=== PATIENT | female | born 1930 | race Caucasian/White ===

== ENCOUNTER 2016-07-05 06:19 | Observation (INO) | payer MEDICARE, MEDICAID ==
[2016-07-05 06:27] VITALS: BMI 32.1
[2016-07-05 07:22] LABS: ADD MANUAL DIFF? NO; BASO # 0.02 K/mm3 (0.0-2.0); BASO % 0.3 % (0.0-3.0); EOS # 0.1 (0.0-0.7); EOS % 1.2 % (1.5-5.0); GRAN # 3.17 (1.4-6.5); GRAN % 55.4 % (50.0-68.0); LYMPH # 1.3 (1.2-3.4); LYMPH % 23.3 % (22.0-35.0); MEAN CELL VOLUME 87.4 fL (80.0-105.0); MEAN CORPUSCULAR HEMOGLOBIN 29.2 pg (25.0-35.0); MEAN CORPUSCULAR HGB CONC 33.4 g/dl (31.0-37.0); MEAN PLATELET VOLUME 10.2 fl (7.0-11.0); MONO # 1.1 (0.1-0.6); MONO % 19.8 % (1.0-6.0); PLATELET COUNT 216 10^3/uL (120.0-450.0); RED CELL DISTRIBUTION WIDTH 14.9 % (11.5-14.5); WHITE BLOOD COUNT 5.7 10^3/ul (4.5-11.0)
[2016-07-05 07:31] LABS: ALKALINE PHOSPHATASE 52 U/L (38-133); ALT/SGPT 21 U/L (7-56); AST/SGOT 18 U/L (15-39); BILIRUBIN,TOTAL 0.7 mg/dL (0.2-1.3); BLOOD UREA NITROGEN 16 mg/dL (7-21); CALCIUM 9.8 mg/dL (8.4-10.5); CARBON DIOXIDE 26 mmol/L (21-33); CHLORIDE 102 mmol/L (98-107); GFR AFRICAN-AMERICAN > 60; GLUCOSE,RANDOM 121 mg/dL (70-110); POTASSIUM 3.6 mmol/L (3.6-5.0); SODIUM 139 mmol/L (132-148); TOTAL PROTEIN 7.7 g/dL (5.8-8.3)
[2016-07-05 07:33] LABS: INR 1.14 (0.93-1.08); PARTIAL THROMBOPLASTIN TIME 29.4 Seconds (23.7-30.8)
[2016-07-05 07:43] LABS: TROPONIN I 0.02 ng/mL
--- NOTE | 2016-07-05 07:50 | ED PDOC ---
Arrival/HPI - General Chief Complaint: Chest Pain Time Seen by Provider: 07/05/16 07:11 Historian: Patient - History of Present Illness Narrative History of Present Illness (Text): 07/05/16 07:47 86-year-old female with a history of aortic stenosis, coronary artery disease, open heart surgery, and hypertension, presents to the emergency department with 2 days' duration of left-sided upper chest discomfort. Patient states it is nonexertional, and denies any shortness of breath or dyspnea and exertion. Patient states that this started after she was pushing a laundry basket, and is more localized to the left upper chest and her left shoulder. Patient states that her left shoulder hurts with palpation and range of motion testing. She denies any ripping or tearing sensation/radiation to the back. No other complaints. Time/Duration: Other (2 days) Symptom Onset: Sudden Symptom Course: Unchanged Activities at Onset: Rest Modifying Factors (Text): none Context: Home Past Medical History - Provider Review Nursing Documentation Reviewed: Yes - Tetanus Immunization Tetanus Immunization: Unknown - Cardiac Hx Cardiac Disorders: Yes (cabg 2 vessels) Hx Hypertension: Yes Hx Pacemaker: No - Pulmonary Hx Respiratory Disorders: No - Neurological Hx Neurological Disorder: No - HEENT Hx HEENT Disorder: No Hx Blind: No Hx Cataracts: Yes (left eye sx) - Renal Hx Renal Disorder: No - Endocrine/Metabolic Hx Endocrine Disorders: No - Hematological/Oncological Hx Blood Disorders: No - Integumentary Hx Dermatological Disorder: No - Musculoskeletal/Rheumatological Hx Musculoskeletal Disorders: No Hx Falls: No - Gastrointestinal Hx Gastrointestinal Disorders: Yes Hx Gastroesophageal Reflux: Yes - Genitourinary/Gynecological Hx Genitourinary Disorders: No - Psychiatric Hx Psychophysiologic Disorder: Yes (recent of family member) Hx Emotional Abuse: No Hx Physical Abuse: No Hx Substance Use: No - Surgical History Hx Open Heart Surgery: Yes (2011) - Anesthesia Hx Anesthesia Reactions: No Hx Malignant Hyperthermia: No - Suicidal Assessment Feels Threatened In Home Enviroment: No Family/Social History - Physician Review Nursing Documentation Reviewed: Yes Family/Social History: Unknown Family HX Smoking Status: Never Smoked Hx Alcohol Use: No Hx Substance Use: No Allergies/Home Meds Allergies/Adverse Reactions: Allergies No Known Allergies Allergy (Verified 07/05/16 06:27) Home Medications: Home Meds Medication Instructions Recorded Confirmed Famotidine [Pepcid] 40 mg PO DAILY 03/14/15 07/05/16 Aspirin [Ecotrin] 81 mg PO DAILY 07/05/16 07/05/16 Diclofenac Sodium [Voltaren] 1 % TP QID 07/05/16 07/05/16 Lidocaine 5% [Lidocaine] 1 appl TP QID PRN 07/05/16 07/05/16 Losartan [Cozaar] 50 mg PO DAILY 07/05/16 07/05/16 Omeprazole/Sodium Bicarbonate 1 each PO DAILY 07/05/16 07/05/16 [Omeprazole-Bicarb 40-1,100 Cap] Simvastatin [Zocor] 10 mg PO DAILY 07/05/16 07/05/16 Tolterodine Tartrate [Detrol LA] 4 mg PO DAILY 07/05/16 07/05/16 Review of Systems - Physician Review All systems were reviewed & negative as marked: Yes Physical Exam - Physical Exam Narrative Physical Exam (Text): 07/05/16 07:49 - Review of Systems Constitutional: Normal. absent: Fatigue, Weight Change, Fevers Eyes: Normal ENT: denies sore throat, denies tristhmus Respiratory: Normal. absent: SOB, Cough, Sputum Cardiovascular: chest pain absent: Palpitations, Syncope Gastrointestinal: Normal. absent: Abdominal Pain, Diarrhea, Nausea, Vomiting Genitourinary: Normal. absent: Dysuria, Frequency, Hematuria, vaginal bleeding Musculoskeletal: Normal. absent: Arthralgias, Back Pain, Neck Pain Skin: no rashes, no erythema Neurological: absent: Focal Weakness Endocrine: Normal Hemo/Lymphatic: Normal Psychiatric: No suicidal or homicidal ideations Physical exam Patient appears age appropriate in no distress, speaking full sentences without difficulty - Systems Exam Head: Present: Atraumatic, Normocephalic Pupils: Present: PERRL Extroacular Muscles: Present: EOMI Conjunctiva: Present: Normal Mouth: Present: Moist Mucous Membranes Neck: Present: Normal Range of Motion. No: MIDLINE TENDERNESS, Paraspinal Tenderness Respiratory/Chest: Present: Clear to Auscultation, Good Air Exchange. No: Respiratory Distress, Accessory Muscle Use, Tachypneic Cardiovascular: Present: Regular Rate and Rhythm, Normal S1, S2, Peripheal Pulses Present. No: Murmurs Abdomen: Present: Normal Bowel Sounds. No: Tenderness, Distention, Peritoneal Signs, Rebound, Guarding Back: Present: Normal Inspection. No: Midline Tenderness, Paraspinal Tenderness Upper Extremity: Present: Left shoulder range of motion limited due to pain. Anterior shoulder tender to palpation. Distal neurovascular fully intact No: Cyanosis, Edema Lower Extremity: Present: Normal Inspection. No: Edema Neurological: Present: GCS=15, Speech Normal, cranial nerves II through XII fully intact with no cerebellar abnormality, neurosensory fully intact. No focal neurological deficits. Skin: Present: Warm, Dry, Normal Color. No: Rashes Lymphatic: Present: OX3, NI, NC Psychiatric: Present: Alert, Oriented x 3, Normal Insight, Normal Concentration Vital Signs Reviewed: Yes Vital Signs Temp Pulse Resp BP Pulse Ox 07/05/16 08:53 72 18 113/57 L 96 07/05/16 08:38 73 18 113/57 L 97 07/05/16 06:19 98.6 F 86 18 135/70 98 Temperature: Afebrile Blood Pressure: Normal Pulse: Regular Respiratory Rate: Normal Appearance: Positive for: Well-Appearing Pain Distress: None Mental Status: Positive for: Alert and Oriented X 3 Medical Decision Making ED Course and Treatment: 07/05/16 07:50 Impression: 86-year-old female with history of coronary artery disease presents with reproducible left-sided chest discomfort. Differential Diagnosis include but are not limited to: Plan: -- Chest xray -- Radiology left shoulder -- Labs -- Aspirin, nitroglycerin -- Reassess and disposition Prior Visits: Notes and results from previous visits were reviewed. Patient last seen in the ED on 03/14/15 for evaluation of left sided chest pain. Patient was advised to continue medications, defer to her outpatient roller stitcher for use of beta raymond and advised to have an outpatient stress test. Patient was discharged on 03/15/16. Progress Notes: case dw Taylor Morley and Sarabjit. aware of tele obs pt aware of and agrees with plan EKG shows normal sinus, 84 bpm, LVH, ST depressions in the lateral leads. Interpreted by me. Chest x-ray shows cardiomegaly, sternotomy sutures, no effusions, no obvious infiltrates. Interpreted by me. - Lab Interpretations Lab Results: 07/05/16 07:12 07/05/16 07:12 Lab Results 07/05/16 07:12: Sodium 139, Potassium 3.6, Chloride 102, Carbon Dioxide 26, Anion Gap 15, BUN 16, Creatinine 0.7, Est GFR ( Amer) > 60, Est GFR (Non- Af Amer) > 60, Random Glucose 121 H, Calcium 9.8, Total Bilirubin 0.7, AST 18, ALT 21, Alkaline Phosphatase 52, Lactate Dehydrogenase 455, Total Creatine Kinase 24 L, Troponin I 0.02 D, NT-Pro-B Natriuret Pep 2790 H, Total Protein 7.7, Albumin 3.8, Globulin 4.0, Albumin/Globulin Ratio 1.0 L 07/05/16 07:12: PT 12.3 H, INR 1.14 H, APTT 29.4 07/05/16 07:12: WBC 5.7, RBC 3.66, Hgb 10.7 L, Hct 32.0 L, MCV 87.4, MCH 29.2, MCHC 33.4, RDW 14.9 H, Plt Count 216, MPV 10.2, Gran % 55.4, Lymph % (Auto) 23.3 , [place] % (Auto) 19.8 H, Eos % (Auto) 1.2 L, Baso % (Auto) 0.3, Gran # 3.17, Lymph # 1.3, [place] # 1.1 H, Eos # 0.1, Baso # 0.02 - RAD Interpretation Radiology Orders: 07/05/16 07:12 CHEST PORTABLE [RAD] Stat 07/05/16 07:46 SHOULDER LEFT [RAD] Stat - Medication Orders Current Medication Orders: Discontinued Medications Aminophylline (Aminophylline 25 Mg/Ml Inj) Confirm Administered Dose 250 mg .ROUTE .STK-MED ONE Stop: 07/07/16 11:08 Aspirin (Aspirin Chewable) 324 mg PO STAT STA Stop: 07/05/16 07:54 Last Admin: 07/05/16 08:19 Dose: 324 mg Aspirin (Ecotrin) 81 mg PO DAILY [facility] Last Admin: 07/07/16 14:24 Dose: 81 mg Atorvastatin Calcium (Lipitor) 10 mg PO DIN [facility] Last Admin: 07/06/16 19:06 Dose: 10 mg Ketorolac Tromethamine (Toradol) 30 mg IM Q6 PRN PRN Reason: MOD PAIN Last Admin: 07/05/16 13:52 Dose: 30 mg Re-Assess: MAR Pain Assessment Document 07/05/16 14:52 SPA (Rec: 07/05/16 18:18 SPA [id number]) Pain Reassessment Is this a pain reassessment? Yes Sleep Is patient sleeping during reassessment? Yes Ketorolac Tromethamine (Toradol) 30 mg IM STAT STA Stop: 07/05/16 20:09 Last Admin: 07/05/16 22:23 Dose: 30 mg Re-Assess: MAR Pain Assessment Document 07/05/16 23:23 SBO (Rec: 07/06/16 00:53 SBO [id number]) Pain Reassessment Is this a pain reassessment? Yes Sleep Is patient sleeping during reassessment? No Presence of Pain Presence of Pain No Lisinopril (Zestril) 10 mg PO DAILY [facility] Last Admin: 07/07/16 14:24 Dose: 10 mg Nitroglycerin (Nitrostat Sl Tab) 0.3 mg SL STAT STA Stop: 07/05/16 07:54 Last Admin: 07/05/16 08:19 Dose: 0.3 mg Pantoprazole Sodium (Protonix Inj) 40 mg IVP DAILY [facility] Last Admin: 07/07/16 14:21 Dose: Not Given Non-Admin Reason: Patient in Cardiology Pneumococcal Polyvalent Vaccine (Pneumovax 23 Vaccine) 0.5 ml IM .ONCE ONE Stop: 07/05/16 14:50 Potassium Chloride (Potassium Chloride Oral Soln) 40 meq PO ONCE ONE Stop: 07/06/16 08:49 Last Admin: 07/06/16 09:50 Dose: 40 meq Regadenoson (Lexiscan) Confirm Administered Dose 0.4 mg IVP .STK-MED ONE Stop: 07/07/16 11:08 Last Admin: 07/07/16 11:32 Dose: 0.4 mg Disposition/Present on Arrival - Present on Arrival Any Indicators Present on Arrival: No History of DVT/PE: No History of Uncontrolled Diabetes: No Urinary Catheter: No History of Decub. Ulcer: No History Surgical Site Infection Following: None - Disposition Have Diagnosis and Disposition been Completed?: Yes Diagnosis: Chest pain Disposition: HOSPITALIZED Disposition Time: 07:52 Patient Plan: Observation Condition: FAIR
--- NOTE | 2016-07-05 08:39 | RAD ---
HISTORY: cough COMPARISON: 07/05/2016 FINDINGS: LUNGS: No active pulmonary disease. PLEURA: No significant pleural effusion identified, no pneumothorax apparent. CARDIOVASCULAR: Normal. OSSEOUS STRUCTURES: Sternal wires VISUALIZED UPPER ABDOMEN: Normal. OTHER FINDINGS: None. IMPRESSION: No active disease.
--- NOTE | 2016-07-05 11:52 | CON ---
DATE: 07/05/2016 REASON FOR CONSULTATION: Cardiac evaluation, chest pain, history of coronary artery disease, history of AVR. BRIEF CLINICAL HISTORY: This is an 86-year-old female with past medical history of aortic stenosis, coronary artery disease, status post open heart surgery, CABG as well as AVR 4 years ago at [facility], came in with complaint of left shoulder pain. While the patient was pulling the la undry bag, as she pulled and then she had chest pain ____; is very tender. Denies any chest pain brianda or to that. Omanretz-uc-yrr is at the bedside and gives information through the translation. The pa pedro speaks Azeri. PAST MEDICAL HISTORY: Significant for history of hypertension, hyperlipidemia, coronary artery disea se, CABG 4 years ago at [facility], and history of AVR. PREVIOUS CARDIAC WORKUP: The patient had echocardiography done dated 03/15/2015 that shows ejection fraction 45-50%, mild aortic regurgitation, not well visualized possibly moderate , moderate to sev ere mitral regurgitation, moderate tricuspid regurg, RV systolic pressure 40, dated 03/15/2015. Hist ory of chronic left shoulder pain. CURRENT MEDICATIONS: The patient at home was taking simvastatin 20 mg daily, lisinopril 10 mg, Pepci d 40 mg, aspirin 81 mg daily. REVIEW OF SYSTEMS: As per HPI. PHYSICAL EXAMINATION: VITAL SIGNS: Temperature afebrile, heart rate 72, blood pressure 113/57. HEENT: PERRLA. Extraocular muscles intact. NECK: Supple. No carotid bruits. No thyromegaly. CHEST: Clear to auscultation. HEART: S1, S2 regular. ABDOMEN: Soft. EXTREMITIES: Clubbing and cyanosis negative. EKG showed normal sinus. No acute ST-T changes noted. BLOOD WORKUP: WBC 5.7, hemoglobin 10.7, hematocrit 32, platelet count 216. Chemistry shows sodium 1 39, potassium 3.6, chloride 102, carbon dioxide 26, anion gap of 15, BUN 16, creatinine 0.6. Troponi n 0.02, negative. BNP 2,790. IMPRESSION: Mitral regurgitation in the past, history of aortic stenosis, possible aortic valve repl acement, history of coronary artery bypass graft 4 years ago at [facility], cardiomyopathy, tricuspid regurgitation. Chest pain is very atypical; it is musculoskeletal and more on the shoulder ; the patient cries on moving the shoulder. RECOMMENDATION: Follow up CPK, troponin. Continue NSAID. Will get echo to assess LV function. Lip id profile and TSH. Will not do a stress test as now the patient has a very painful left shoulder an d cannot lift up shoulder for a stress test. So, we will schedule a stress test as outpatient later on, but will give adequate analgesics and echo to assess LV function, lipid profile and hemoglobin A1 c. Will follow with you. Thank you, Dr. Morley, for providing the opportunity in taking care of the patient. Val Whipple MD cc: [phone] TT: 07/05/2016 11:28:56 Confirmation # [id number] Dictation # [id number] mn 07/05/2016 10:51:28
--- NOTE | 2016-07-05 12:04 | RAD ---
PROCEDURE: Radiographs of the Left Shoulder HISTORY: pain COMPARISON: 03/15/2015 FINDINGS: BONES: Normal. No fracture. JOINTS: Unremarkable glenohumeral articulation. Degenerative arthritis of the acromioclavicular joint, unchanged in extent. There is apparent capsular calcifications seen beneath the acromion, most clearly evident on the "Y" view. Significance uncertain. This is unchanged from earlier examination. SOFT TISSUES: Normal. OTHER FINDINGS: None. IMPRESSION: Degenerative arthritis of the acromioclavicular joint. Probable capsular calcification of uncertain significance. No additional abnormality.
[2016-07-05] MEDS ORDERED: Pneumococcal 23-Valent Vaccine IM ONE (14:49)
[2016-07-05 16:28] LABS: TROPONIN I 0.02 ng/mL
--- NOTE | 2016-07-05 18:36 | CARD ---
APPROVED REPORT EXAM: Two-dimensional and M-mode echocardiogram with Doppler and color Doppler. INDICATION Aortic Valve Disease Cardiac Disease: CAD Chest Pain 2D DIMENSIONS Left Atrium (2D)3.3 (1.6-4.0cm)IVSd1.1 (0.7-1.1cm) LVDd4.1 (3.9-5.9cm)PWd1.3 (0.7-1.1cm) LVDs3.4 (2.5-4.0cm)FS (%) 16.7 % LVEF (%)35.4 (>50%) M-Mode DIMENSIONS Aortic Root1.80 (2.2-3.7cm)Aortic Cusp Exc.0.60 (1.5-2.0cm) Aortic Valve AoV Peak Uowatoxo349.0cm/sAoV VTI59.0cmAO Peak GR.58mmHg AO Mean GR.27mmHg Mitral Valve MV E Akgrjuse467.0cm/sMV A Kibjcbzq994.0cm/sE/A ratio1.0 TDI E/Lateral E'0.0E/Medial E'0.0 Tricuspid Valve TR Peak Sqvommbt216uj/sRAP [id number] Peak Gr.31mmHg [id number] LEFT VENTRICLE The left ventricle is normal size. There is mild concentric left ventricular hypertrophy. The systolic function is moderately impaired.EF-35% There is moderate hypokinesis in the apical anterior wall. Transmitral Doppler flow pattern is Grade III-reversible restrictive diastolic dysfunction. No left ventricle thrombus noted on this study. There is no ventricular septal defect visualized. There is no left ventricular aneurysm. There is no mass noted in the left ventricle. RIGHT VENTRICLE The right ventricle is normal size. There is normal right ventricular wall thickness. The right ventricular systolic function is normal. ATRIA The left atrium is mildly dilated. The right atrium size is normal. The interatrial septum is intact with no evidence for an atrial septal defect. AORTIC VALVE There is trace aortic regurgitation. Possible S/P Bioprosthetic AVR, not well visualized MITRAL VALVE The mitral valve is thickened but opens well. Mitral regurgitation is moderate. There is no mitral valve stenosis. There is no evidence of mitral valve prolapse. TRICUSPID VALVE The tricuspid valve leaflets are thickened or calcified, but open well. There is mild to moderate tricuspid regurgitation.RVSP-41 mmof Hg. There is no tricuspid valve stenosis. There is no tricuspid valve prolapse or vegetation. PULMONIC VALVE The pulmonic valve is not well visualized. There is no pulmonic valvular regurgitation. There is no pulmonic valvular stenosis. GREAT VESSELS The aortic root is normal in size. The ascending aorta is normal in size. The pulmonary artery is normal. The IVC is normal in size and collapses >50% with inspiration. PERICARDIAL EFFUSION There is no pleural effusion. There is no pericardial effusion. <Conclusion> The left ventricle is normal size. There is mild concentric left ventricular hypertrophy. The systolic function is moderately impaired.EF-35% Possible S/P Bioprosthetic AVR, not well visualized There is trace aortic regurgitation. Mitral regurgitation is moderate. There is mild to moderate tricuspid regurgitation.RVSP-41 mmof Hg. There is no pericardial effusion. The IVC is normal in size and collapses >50% with inspiration. No Vegetation or thrombus noted.
[2016-07-06 07:03] LABS: BASO # 0.01 K/mm3 (0.0-2.0); BASO % 0.2 % (0.0-3.0); EOS # 0.1 (0.0-0.7); EOS % 1.9 % (1.5-5.0); GRAN # 2.02 (1.4-6.5); GRAN % 42.3 % (50.0-68.0); HEMATOCRIT 30.7 % (36.0-48.0); LYMPH # 1.9 (1.2-3.4); MEAN CELL VOLUME 88.2 fL (80.0-105.0); MEAN CORPUSCULAR HGB CONC 32.9 g/dl (31.0-37.0); MEAN PLATELET VOLUME 10.4 fl (7.0-11.0); MONO # 0.8 (0.1-0.6); MONO % 16.6 % (1.0-6.0); PLATELET COUNT 206 10^3/uL (120.0-450.0); RED CELL DISTRIBUTION WIDTH 14.7 % (11.5-14.5); WHITE BLOOD COUNT 4.8 10^3/ul (4.5-11.0)
[2016-07-06 07:07] LABS: ADD MANUAL DIFF? NO
[2016-07-06 07:12] LABS: ALB/GLOB RATIO 0.9 (1.1-1.8); ALKALINE PHOSPHATASE 52 U/L (38-133); ALT/SGPT 26 U/L (7-56); AST/SGOT 18 U/L (15-39); BILIRUBIN,TOTAL 0.5 mg/dL (0.2-1.3); BLOOD UREA NITROGEN 17 mg/dL (7-21); CALCIUM 9.3 mg/dL (8.4-10.5); CARBON DIOXIDE 28 mmol/L (21-33); CHLORIDE 104 mmol/L (98-107); CHOLESTEROL 152 mg/dL (130-200); GFR AFRICAN-AMERICAN > 60; GLUCOSE,RANDOM 100 mg/dL (70-110); MAGNESIUM 1.7 mg/dL (1.7-2.2); POTASSIUM 3.5 mmol/L (3.6-5.0); SODIUM 140 mmol/L (132-148)
[2016-07-06] MEDS ORDERED: Potassium Chloride 40 mEq/30 ml LIQ UD PO ONE (08:48)
--- NOTE | 2016-07-06 09:48 | HP ---
An 86-year-old female who came in to the hospital with left-sided chest pain and shoulder pain. HISTORY OF PRESENT ILLNESS: An 86-year-old female chronic ulcers, history of cardiac disease. She h as bypass surgery. She has an aortic valve replacement, and since then, she seems to be doing okay. However, she does complain of left-sided chest pain that seems hanging with her for the last couple of days and getting worse. Sometimes it is worse with movement. Also, she complained of left should er pain that is worse with movement. The patient has no other complaint. No nausea, no vomiting, no diarrhea. She denied any fever. She denied any chills, no shortness of breath. PAST MEDICAL HISTORY: As I mentioned, bypass surgery, aortic valve replacement, chronic osteoarthrit is, gastritis, had a colonoscopy. She had an anal fissure with pain, recurrent urinary tract infecti on, sepsis in the past. She also had gastritis. ALLERGIES: No known allergies. SOCIAL HISTORY: No smoking, no drinking. She lives with her kids ____. HOME MEDICATIONS: She does take Detrol 4 mg p.o. daily, Zocor 10 mg once a day, Zegerid once a day, Cozaar 50 mg 1 a day, lidocaine ointment to her joints, Pepcid 40 mg once a day, Voltaren gel to her joints, baby aspirin 81 mg once a day. REVIEW OF SYSTEMS: Significant for abdominal discomfort, epigastric area, gastritis due to nonsteroi sachin ibuprofen, which she stopped recently, also joint pain, neck pain, shoulder pain, back pain, and also anal pain with constipation and burning urination with recurrent UTI. PHYSICAL EXAMINATION: VITAL SIGNS: Temperature is 99.5, heart rate 87, blood pressure 126/76, respirations 20. HEAD AND NECK: Normal. No JVD, no thyromegaly. CHEST: Clear. Good air entry. CARDIAC: First sound and second sound normal. ABDOMEN: Soft. There is epigastric mild tenderness. EXTREMITIES: No edema. Left shoulder - there was significant decrease in range of motion due to sev ere pain, and also chest wall - there is mild to minimal tenderness. IMPRESSION AND PLAN: 1. Chest pain, etiology most likely atypical for cardiac. We will get a cardiology consult because of the history - Dr. Whipple, get a stress test maybe an echo, and we will evaluate further depending on her clinical condition. 2. Left shoulder severe osteoarthritis. We will get an x-ray. Dr. Scott, orthopedic consult . 3. Urine incontinence, hypercholesterolemia, recurrent gastritis, hypertension. PLAN: Resume all her meds. Continue simvastatin. Continue Protonix injections. Cozaar 50 mg has b een switched Zestril 10 mg p.o. daily. Continue baby aspirin 81 mg daily. We will follow up clinically for her hypertension. The patient is currently getting Zestril 10 mg. Followup. Leonard Morley MD cc: [phone] TT: 07/06/2016 09:47:32 jn
--- NOTE | 2016-07-06 09:54 | CON ---
DATE: 07/06/2016 ORTHOPEDIC REPORT An 86-year-old female with the complaint of left shoulder pain for several days, never had it attende d to. X-ray shows large calcium deposit at subacromial space laterally of the left shoulder with exq uisite pain and tenderness and some swelling, and also has AC joint osteoarthritis significant. So s he must have a history of previous left shoulder trauma years ago. She was unable to move the arm because of pain, so we injected her left shoulder to try to do arthroc entesis. No fluid was able to come out because I am sure the synovitis was so bad that the needle wa s occluded by the synovium. So we injected that triggerpoint with Depo-Medrol and Marcaine for sympt omatic relief, and hopefully, it will feel better, and we can start therapy, which will be gentle ran ge of motion, and no heavy weights. FINAL DIAGNOSIS: Calcific bursitis, left shoulder as proven by the x-ray and clinically, and injecte d with Depo-Medrol and Marcaine. I hope she feels better. Nav Scott DO cc: [id number] TT: 07/06/2016 09:53:35 Confirmation # [id number] Dictation # [id number] sita
--- NOTE | 2016-07-06 11:06 | PN ---
DATE: 07/06/2016 REASON FOR CONSULTATION: Cardiac evaluation, chest pain, history of coronary artery disease, histor y of AVR musculoskeletal chest pain, probably secondary to bursitis: BRIEF CLINICAL HISTORY: This is an 86-year-old female with a past medical history significant for ao rtic stenosis, coronary artery disease, status post open heart surgery, CABG as well as AVR 4 years a go at [facility], came in with complaint of left shoulder pain. Tt is very tender and when the patient is pulling the laundry bag, the upper shoulder pain got worse and radiated to the c hest, so the patient came in here. Yesterday, patient last night, got steroid injections by Dr. Ivy paredes and feels a lot better this morning. Denies any episode of chest pain. PHYSICAL EXAMINATION: VITAL SIGNS: Temperature afebrile, heart rate ____, blood pressure 126/71. HEENT: PERRLA. Extraocular muscles intact. NECK: Supple. No carotid bruits. No thyromegaly. CHEST: Clear to auscultation. HEART: S1, S2 regular. ABDOMEN: Soft. EXTREMITIES: Clubbing and cyanosis negative. LABORATORY DATA: WBC 4.8, hemoglobin 10.9, hematocrit 30.7, platelet count 206. Chemistry shows sod ium 140, potassium 3.5, chloride 104, carbon dioxide 28, anion gap of 12, BUN 17, creatinine 0.8. To grant protein 7, albumin 3.4, albumin/globulin ratio 0.9. Troponin 0.02. TSH 2.73. Triglycerides 31, cholesterol 152, LDL 73, HDL 42. IMPRESSION: No evidence of acute coronary syndrome, history of coronary artery disease, history of c oronary artery bypass graft, history of aortic valve replacement, atypical chest pain secondary to mu sculoskeletal. The patient yesterday underwent echocardiography that showed ejection fraction 35%, s tatus post possible bioprosthesis not well visualized, moderate mitral regurgitation, mild to moderat e tricuspid regurgitation, right ventricular systolic pressure of 41. RECOMMENDATION: Because of the risk factors and cardiomyopathy not being followed by cardiology, sug gest a stress test Lexiscan when the pain gets better and the patient can tolerate and raise her left arm above the head to get the picture of nuclear stress test. Interim, continue aspirin, continue a torvastatin, continue lisinopril, and we will schedule stress test for tomorrow, Lexiscan. We will d iscontinue telemetry. Continue rehab. Thank you, Dr. Morley, for providing the opportunity in taking care of the patient. Val Whipple MD cc:Leonard Morley MD [phone] TT: 07/06/2016 11:06:11 Confirmation # [id number] Dictation # [id number] tn
--- NOTE | 2016-07-06 11:33 | CARD ---
APPROVED REPORT EKG Measurement Heart [id number] NE 250P57 [id number] <Conclusion> Sinus rhythm with 1st degree AV block with premature atrial complexes LBBB Abnormal ECG
[2016-07-07 08:03] LABS: ALKALINE PHOSPHATASE 56 U/L (38-133); ALT/SGPT 18 U/L (7-56); AST/SGOT 21 U/L (15-39); BILIRUBIN,TOTAL 0.3 mg/dL (0.2-1.3); BLOOD UREA NITROGEN 27 mg/dL (7-21); CALCIUM 9.7 mg/dL (8.4-10.5); CARBON DIOXIDE 27 mmol/L (21-33); CHLORIDE 105 mmol/L (95-110); GFR AFRICAN-AMERICAN > 60; GLUCOSE,RANDOM 121 mg/dL (70-110); POTASSIUM 4.9 mmol/L (3.6-5.0); SODIUM 144 mmol/L (132-148); TOTAL PROTEIN 7.3 g/dL (5.8-8.3)
[2016-07-07 08:55] VITALS: RESP 20; TEMP 97.5; O2SAT 97
--- NOTE | 2016-07-07 10:45 | PN ---
DATE: 07/06/2016 DATE: 07/06/2016 An 86-year-old female who was seen by veneer stock grader, orthopedics. She received left shoulder injectio n today. She feels better. The patient still complains of some left-sided chest pain. However, she looks much better than before. No respiratory distress, going for stress thallium. PHYSICAL EXAMINATION: VITAL SIGNS: Temperature 98, heart rate 80, blood pressure 115/68, respirations 19. HEAD AND NECK: Normal. No JVD, no thyromegaly. CHEST: Clear, good air entry. CARDIAC: First sound and second sounds normal. A systolic murmur in the aortic area. ABDOMEN: Soft, nontender. EXTREMITIES: No edema. NEUROLOGIC: Normal. Left shoulder - severe restriction due to pain seems better since injection. LABORATORY DATA: White count 4.8, hemoglobin 10.1, hematocrit 30.7, platelets 206. Chemistry shows sodium 140, potassium 3.5, chloride 104, bicarb 28. BUN is 17, creatinine 0.8. Liver function test is normal. IMPRESSION: 1. Left side chest pain going for a stress thallium in the morning. 2. Left shoulder severe osteoarthritis, received injections, seems better. Continue current treatme nt. 3. Hypertension, hypercholesterolemia, history of coronary artery disease, bypass surgery, aortic va lve replacement, chronic osteoarthritis. Continue Zocor. Continue Cozaar, Pepcid, aspirin, and we w ill follow up clinically. Continue current treatment. Leonard Morley MD cc: [phone] TT: 07/07/2016 10:44:56 Confirmation # [id number] Dictation # [id number]
[2016-07-07] MEDS ORDERED: Aminophylline 25 mg/ml Inj ONE (11:07)
--- NOTE | 2016-07-07 13:50 | PN ---
DATE: 07/07/2016 The patient is in room 575, bed 1. REASON FOR CONSULTATION AND FOLLOWUP: Chest pain, history of coronary artery disease, history of AVR . HISTORY OF PRESENT ILLNESS: This is an 86-year-old female with past medical history significant for aortic stenosis, coronary artery disease, status post open heart surgery, CABG, as well as AVR 4 year s ago at [facility], admitted with left shoulder pain, it is markedly tender, and then patient was pulling the laundry bag, the shoulder pain got worse and radiated to the chest. The pat aruna does not have any chest pain today. The shoulder pain also has improved. She got injection fro m Dr. Scott in the shoulder. PHYSICAL EXAMINATION: VITAL SIGNS: Blood pressure 130/68, respirations 20, pulse 70, temperature 97.5. HEAD: Normocephalic. EYES: Pupils normal. Conjunctivae are slightly pale. NECK: JVP low. Carotids equal. THORAX: AP diameter normal. LUNGS: No rales. CARDIOVASCULAR: S1, S2. No rub. ABDOMEN: Soft, nontender, no organomegaly. EXTREMITIES: No clubbing, no cyanosis. LABORATORY DATA: WBC 4.8, hemoglobin 10.1, hematocrit 30.7, platelet 206. Sodium 144, potassium 4.9 , BUN 27, creatinine 0.9, random sugar 121. AST, ALT normal. Total protein and albumin normal. DIAGNOSES: Shoulder and chest pain, probably musculoskeletal, history of aortic valve replacement, h istory of coronary artery bypass surgery. 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 PLAN: The patient is going to have IV Lexiscan stress test today. In the meantime, the patient will continue lisinopril, aspirin, atorvastatin, and we will follow with the stress test results. Val Garay MD cc: [phone] TT: 07/07/2016 13:50:04 Confirmation # [id number] Dictation # [id number]
[2016-07-07 14:26] VITALS: BP 110/60; PULSE 76
--- NOTE | 2016-07-07 16:57 | CARD ---
APPROVED REPORT Protocol: LEXISCAN Test Type: Lexiscan Sestamibi Stress Test Attending Physician: Dr. Val Garay Referring Physician: Dr. Leonard Morley Test Indications: Chest Pain Height:5 ft 1 in Weight:147lbs Medications: ASA Lipitor Zestril Toradal Medical History: 86 y/o female hx of chest pain Target HR: 135 bpm Resting ECG: RSR. MO Prolonged. LBBB. Resting Heart Rate: 73 bpm Resting Blood Pressure: 130/60mmHg Submaximum (85%): 115 bpm PROCEDURE Pharmacologic stress testing was performed using 0.4mg per 5ml of regadenoson given intravenously over 7-10 seconds. POST EXERCISE Reason for Termination: Protocol completed Target HR: No Max HR: 81 bpm 68% of Maximum Predicted HR: 135 bpm Exercise duration: 05:18 min:sec, 0 Stage Exercise capacity: 1.0METs Max Blood Pressure: 130/60mmHg Blood Pressure response to exercise: normal resting BP - appropriate response Heart Rate response to exercise: appropriate Chest Pain: No, none Angina index: 0 Arrhythmia: No, none ST Change: Yes, Difficult to comment due to LBBB Deviation: 0 mm TEST SUMMARY [id number]. INFUSIONDOSE 101:000.00.01.082/.0. INFUSIONDOSE 201:[id number]/67.2. INFUSIONDOSE 301:[id number]/67.0. INFUSIONDOSE 401:000.00.01.090/.1. INFUSIONDOSE 501:000.00.01.085/.0. INFUSIONDOSE 600:180.00.01.081/.0. INTERPRETATION Stress EKG Conclusion: IV LEXISCAN NUCLEAR STRESS TEST NEGATIVE FOR CHEST PAIN. DIFFICULT TO COMMENT ABOUT ST-T CHANGES DUE TO LBBB. NUCLEAR SCAN REEPORT PENDING. Signed by Val Garay Electronically Approved: 07/07/2016 12:57:03 EXAM: Myocardial Perfusion REST/STRESS Stress Test Type: Pharmacologic Imaging Protocol Rest Spect myocardial perfusion imaging was performed in supine position 45 minutes following the injection of 10.6 mCi of Tc-99 Myoview. At peak stress, the patient was injected intravenously with 30.4mCi of Tc-99 tetrofosmin after an infusion time of 0 minutes and 10 seconds. Gated Stress Spect was performed 60 minutes after intravenous Tc-99 Myoview injection. The images were gated to evaluate regional wall motion and calculate ventricular ejection fraction.Images were reconstructed using backfilter projection method in short horizontal and verticle long axis. Spect slices were generated. LV Perfusion The quality of the study is good. The left ventricle is within normal limits in size. The right ventricle is unremarkable. The lung uptake is within normal limits. The distribution of tracer reveals normal uptake pattern throughout the LV myocardium on the stress study. The rest myocardial perfusion study shows no significant change. Wall Motion Wall motion study shows good contractility of the left ventricle except for paradoxical septal wall motion. LVEF = 54%. Conclusion 1. Normal SPECT myocardial perfusion study. 2. Normal overall LV function despite paradoxical septal wall motion.
--- NOTE | 2016-07-08 08:47 | DS ---
The patient was admitted with left side chest pain and also left shoulder pain. She was evaluated by cardiology consult. Echocardiogram was done and stress thallium was done. She also had an x-ray of her left shoulder. She was also seen by orthopedic consult Dr. Nav Scott. The patient wa s given Toradol shot with some relief followed by injection of her left shoulder with some relief of her left shoulder pain. She also underwent echocardiography which shows ejection fraction 35% and bi oprosthetic aortic valve replacement. There is also mitral regurgitation, moderate, and mild to mode rate tricuspid regurg with right ventricular systolic pressure 41 mmHg. There is no pericardial effu christine. IVC is normal in size and collapsed more than 50% with inspiration. The patient also has had ____ SPECT myocardial perfusion test. The patient was doing okay, was discharged home to follow up i n the office within 1 week. PHYSICAL EXAMINATION: VITAL SIGNS: Temperature 97.5, heart rate 70, blood pressure 110/60, respirations 20, saturation 97% . HEAD AND NECK: Normal. No JVD. No thyromegaly. CHEST: Clear, good air entry. CARDIAC: First sound, second sound normal. There is a systolic ejection murmur in the aortic area. ABDOMEN: Soft, nontender. EXTREMITIES: No edema. Left shoulder exam has decreased range of motion, but better than before. NEUROLOGIC: Normal. DISCHARGE DIAGNOSES: 1. Left side chest pain, atypical, noncardiac. 2. Left shoulder osteoarthritis, calcific tendinitis and acromioclavicular osteoarthritis is better. 3. Hypertension. 4. Hypercholesterolemia. 5. Reflux esophagitis and gastritis. PLAN: Continue current treatment. Resume all her meds at home. She should be getting Detrol 4 mg p .o. daily for her incontinence, Zocor 10 mg at night, Zegerid 1 capsule daily, Cozaar 50 mg p.o. linda y, lidocaine and Voltaren gel for her shoulder, Pepcid 40 mg p.o. daily and aspirin 81 mg daily. Con tinue with current treatment. Follow up in office within a week. Leonard Morley MD cc: [phone] TT: 07/08/2016 08:46:17 mn
== END 2016-07-07 15:31 | disposition home health service (06) ==
LOC: ED 06:19 → ERH 08:19 → 2RNO 09:54 → 5RSO 07-06 19:14
PROVIDERS: ADMIT Internal Medicine; ATTEND Internal Medicine
DX: R07.89 Other chest pain (principal); I10 Essential (primary) hypertension; I25.10 Atherosclerotic heart disease of native coronary artery without angina pectoris; M75.52 Bursitis of left shoulder; M19.012 Primary osteoarthritis, left shoulder; E78.00 Pure hypercholesterolemia, unspecified; K29.70 Gastritis, unspecified, without bleeding; K21.0 Gastro-esophageal reflux disease with esophagitis; E78.5 Hyperlipidemia, unspecified; I42.9 Cardiomyopathy, unspecified; I08.3 Combined rheumatic disorders of mitral, aortic and tricuspid valves; R32 Unspecified urinary incontinence; Z95.1 Presence of aortocoronary bypass graft; Z95.3 Presence of xenogenic heart valve
CPT/HCPCS: 20610; 36415; 71010; 73030; 78452; 80053; 80061; 82550; 83036; 83615; 83735; 83880; 84100; 84443; 84484; 85025; 85610; 85730; 93005; 93017; 93306; 96372; 96374; 96376; 99285; A9502; C9113; G0378; J1885; J2785; J3480

== ENCOUNTER 2017-05-06 05:13 | Inpatient (IN) | payer MEDICARE, OTHER ==
[2017-05-06 05:13] VITALS: BMI 32.1
--- NOTE | 2017-05-06 05:32 | ED PDOC ---
Arrival/HPI - General Time Seen by Provider: 05/06/17 05:15 Historian: Patient, Family (Daughter), Kitchen And Bath Designer (Daughter) - History of Present Illness Narrative History of Present Illness (Text): 05/06/17 05:27 An 87 year old female, whose past medical history includes CAD, CABG, aortic stenosis, hypertension, presents to emergency department with a complaint of shortness of breath which began last evening.Denies any chest pain. The patient denies history of fevers, chills, headache, dizziness, cough, abdominal pain, nausea, vomiting, diarrhea, back pain, neck pain, urinary/bowel changes, leg pain or any other complaint. PMD: Dr. Morley Time/Duration: Other (Last Night) Symptom Onset: Sudden Symptom Course: Unchanged Activities at Onset: Rest, Light Context: Home Past Medical History - Provider Review Nursing Documentation Reviewed: Yes - Tetanus Immunization Tetanus Immunization: Unknown - Reproductive Menopause: Yes - Cardiac Hx Cardiac Disorders: Yes (cabg 2 vessels) Hx Hypertension: Yes Hx Pacemaker: No - Pulmonary Hx Respiratory Disorders: No - Neurological Hx Neurological Disorder: No - HEENT Hx HEENT Disorder: No Hx Blind: No Hx Cataracts: Yes (left eye sx) - Renal Hx Renal Disorder: No - Endocrine/Metabolic Hx Endocrine Disorders: No - Hematological/Oncological Hx Blood Disorders: No - Integumentary Hx Dermatological Disorder: No - Musculoskeletal/Rheumatological Hx Musculoskeletal Disorders: No Hx Falls: No - Gastrointestinal Hx Gastrointestinal Disorders: Yes Hx Gastroesophageal Reflux: Yes - Genitourinary/Gynecological Hx Genitourinary Disorders: No - Psychiatric Hx Psychophysiologic Disorder: Yes (recent of family member) Hx Emotional Abuse: No Hx Physical Abuse: No Hx Substance Use: No - Surgical History Hx Open Heart Surgery: Yes (2011) Other/Comment: open heart 2005 - Anesthesia Hx Anesthesia Reactions: No Hx Malignant Hyperthermia: No - Suicidal Assessment Feels Threatened In Home Enviroment: No Family/Social History - Physician Review Nursing Documentation Reviewed: Yes Family/Social History: No Known Family HX Smoking Status: Never Smoked Hx Alcohol Use: No Hx Substance Use: No Allergies/Home Meds Allergies/Adverse Reactions: Allergies No Known Allergies Allergy (Verified 05/06/17 05:23) Home Medications: Home Meds Medication Instructions Recorded Confirmed Famotidine [Pepcid] 40 mg PO DAILY 03/14/15 07/05/16 Aspirin [Ecotrin] 81 mg PO DAILY 07/05/16 07/05/16 Diclofenac Sodium [Voltaren] 1 % TP QID 07/05/16 07/05/16 Losartan [Cozaar] 50 mg PO DAILY 07/05/16 07/05/16 Omeprazole/Sodium Bicarbonate 1 each PO DAILY 07/05/16 07/05/16 [Omeprazole-Bicarb 40-1,100 Cap] Simvastatin [Zocor] 10 mg PO DAILY 07/05/16 07/05/16 Review of Systems - Physician Review All systems were reviewed & negative as marked: Yes - Review of Systems Constitutional: absent: Fevers, Night Sweats Respiratory: SOB. absent: Cough Cardiovascular: absent: Chest Pain Gastrointestinal: absent: Abdominal Pain, Stool Changes, Diarrhea, Nausea, Vomiting Genitourinary Female: absent: Urine Output Changes Musculoskeletal: absent: Back Pain, Neck Pain, Other (Leg Pain) Neurological: absent: Headache, Dizziness Physical Exam Vital Signs Reviewed: Yes Vital Signs Temp Pulse Resp BP Pulse Ox 05/06/17 06:13 88 18 131/70 100 05/06/17 05:48 146/78 05/06/17 05:32 98.2 F 05/06/17 05:30 20 99 05/06/17 05:18 95 H 24 148/78 99 Temperature: Afebrile Blood Pressure: Normal Pulse: Tachycardic Respiratory Rate: Normal Appearance: Positive for: Well-Appearing, Non-Toxic, Comfortable Pain Distress: None Mental Status: Positive for: Alert and Oriented X 3 - Systems Exam Head: Present: Atraumatic, Normocephalic Pupils: Present: PERRL Extroacular Muscles: Present: EOMI Conjunctiva: Present: Normal Mouth: Present: Moist Mucous Membranes Neck: Present: Normal Range of Motion Respiratory/Chest: Present: Rales (Rales at the bases bilaterally.) Cardiovascular: Present: Regular Rate and Rhythm, Normal S1, S2. No: Murmurs Abdomen: Present: Normal Bowel Sounds. No: Tenderness, Distention, Peritoneal Signs Back: Present: Normal Inspection Upper Extremity: Present: Normal Inspection, Normal ROM. No: Cyanosis, Edema Lower Extremity: Present: Normal Inspection, Normal ROM. No: Edema, Cyanosis Neurological: Present: GCS=15, CN II-XII Intact, Speech Normal Skin: Present: Warm, Dry, Normal Color. No: Rashes Psychiatric: Present: Alert, Oriented x 3, Normal Insight, Normal Concentration Medical Decision Making ED Course and Treatment: 05/06/17 05:34 Impression: An 87 year old female, presents to the emergency department complaining of shortness of breath since last evening. DIFF.dx: chf VS. pnA VS.Bronchitis Plan: -- EKG -- Chest X-ray -- Labs -- Aspirin, Lasix, and Duoneb -- Reassess and disposition Prior Visits: Notes and results from previous visits were reviewed. Patient was last seen in the emergency department on 07/05/16. The patient was seen for chest discomfort. The patient was hospitalized. Progress Notes: EKG: Ordered, reviewed, and independently interpreted the EKG. Rate : 81 BPM Rhythm : NSR Interpretation : 1st degree AV block. LBBB. Non- specific ST-T changes. Comparison : No change from previous on 07/05/16 05/06/17 06:19 Case was d/w .Accepts pt. to his service for further management CHF. on consult. Pt. with positive diuresis and relief following treatment.Stable for Telemetry admit. - Lab Interpretations Lab Results: 05/06/17 05:20 05/06/17 05:20 Lab Results 05/06/17 05:20: WBC 5.9 D, RBC 3.58, Hgb 10.3 L, Hct 32.5 L, MCV 90.8, MCH 28.8 , MCHC 31.7, RDW 14.5, Plt Count 243, MPV 10.3 05/06/17 05:20: Sodium 143, Potassium 3.9, Chloride 107, Carbon Dioxide 23, Anion Gap 17, BUN 19, Creatinine 0.9, Est GFR ( Amer) > 60, Est GFR (Non- Af Amer) 59, Random Glucose 118 H, Calcium 10.2, Total Bilirubin 0.4, AST 38 H, ALT 41, Alkaline Phosphatase 79, Lactate Dehydrogenase 567, Total Creatine Kinase 62, Troponin I 0.03 D, NT-Pro-B Natriuret Pep 3050 H, Total Protein 8.2 , Albumin 4.2, Globulin 3.9, Albumin/Globulin Ratio 1.1 05/06/17 05:20: PT 12.3, INR 1.07, APTT 30.5 I have reviewed the lab results: Yes - RAD Interpretation Narrative RAD Interpretations (Text): 05/06/17 06:09 CXR- Increased pulmonary vascular congestion Radiology Orders: 05/06/17 05:32 CHEST PORTABLE [RAD] Stat Legal Administrative Assistant: ED Physician - EKG Interpretation Interpreted by ED Physician: Yes Type: 12 lead EKG - Medication Orders Current Medication Orders: Discontinued Medications Albuterol/Ipratropium (Duoneb 3 Mg/0.5 Mg (3 Ml) Ud) 3 ml IH ONCE STA Stop: 05/06/17 05:34 Last Admin: 05/06/17 05:48 Dose: 3 ml Aspirin (Aspirin) 325 mg PO ONCE STA Stop: 05/06/17 05:34 Last Admin: 05/06/17 05:48 Dose: 325 mg Furosemide (Lasix) 40 mg IVP ONCE ONE Stop: 05/06/17 05:34 Last Admin: 05/06/17 05:48 Dose: 40 mg MAR Blood Pressure Document 05/06/17 05:48 AD (Rec: 05/06/17 05:48 AD [id number]) Blood Pressure Blood Pressure (100/60-150/90 mm Hg) 146/78 IVP Administration Document 05/06/17 05:48 AD (Rec: 05/06/17 05:48 AD [id number]) Charges for Administration # of IVP Administrations 1 - Scribe Statement The provider has reviewed the documentation as recorded by the Barb Sagastume Provider Scribe Attestation: All medical record entries made by the Scribe were at my direction and personally dictated by me. I have reviewed the chart and agree that the record accurately reflects my personal performance of the history, physical exam, medical decision making, and the department course for this patient. I have also personally directed, reviewed, and agree with the discharge instructions and disposition. Disposition/Present on Arrival - Present on Arrival Any Indicators Present on Arrival: No History of DVT/PE: No History of Uncontrolled Diabetes: No Urinary Catheter: No History of Decub. Ulcer: No History Surgical Site Infection Following: None - Disposition Have Diagnosis and Disposition been Completed?: Yes Diagnosis: CHF (congestive heart failure) Disposition: HOSPITALIZED Disposition Time: 06:22 Patient Plan: Admission Patient Problems: Current Active Problems Problem Status Onset CHF (congestive heart failure) Acute Condition: STABLE Discharge Instructions (ExitCare): Heart Failure (ED)
[2017-05-06] MEDS ORDERED: Albuterol-Ipratrop 3 mg / 0.5 (3 ml) UD IH STA (05:33)
[2017-05-06 05:51] LABS: HEMOGLOBIN 10.3 g/dL (12.0-16.0); MEAN CELL VOLUME 90.8 fl (80.0-105.0); MEAN CORPUSCULAR HEMOGLOBIN 28.8 pg (25.0-35.0); MEAN CORPUSCULAR HGB CONC 31.7 g/dl (31.0-37.0); MEAN PLATELET VOLUME 10.3 fl (7.0-11.0); RBC 3.58 10^6/uL (3.5-6.1); RED CELL DISTRIBUTION WIDTH 14.5 % (11.5-14.5); WHITE BLOOD COUNT 5.9 10^3/ul (4.5-11.0)
[2017-05-06 05:59] LABS: ALB/GLOB RATIO 1.1 (1.1-1.8); ALBUMIN 4.2 g/dL (3.0-4.8); ALT/SGPT 41 U/L (7-56); AST/SGOT 38 U/L (14-36); BLOOD UREA NITROGEN 19 mg/dL (7-21); CALCIUM 10.2 mg/dL (8.4-10.5); GFR AFRICAN-AMERICAN > 60; GFR NON-AFRICAN AMERICAN 59
[2017-05-06 06:05] LABS: INR 1.07 (0.93-1.08); PARTIAL THROMBOPLASTIN TIME 30.5 Seconds (25.1-36.5); PROTHROMBIN TIME 12.3 SECONDS (9.4-12.5)
[2017-05-06 06:11] LABS: B-TYPE NATRIURETIC PEPTIDE 3050 pg/mL (0-450); TROPONIN I 0.03 ng/mL
--- NOTE | 2017-05-06 09:05 | RAD ---
HISTORY: sob COMPARISON: 07/05/2016 FINDINGS: LUNGS: There is an infiltrate in the right lower lobe PLEURA: No significant pleural effusion identified, no pneumothorax apparent. CARDIOVASCULAR: The heart is normal in size. There is mild vascular and interstitial congestion OSSEOUS STRUCTURES: Sternal wires VISUALIZED UPPER ABDOMEN: Normal. OTHER FINDINGS: None. IMPRESSION: Vascular congestion. Infiltrate in the right lower lobe
[2017-05-06] MEDS ORDERED: Influenza Vaccine 60 mcg/0.5 mL SYR (4YR UP) IM ONE (12:49)
[2017-05-06] MEDS ORDERED: Pneumococcal 23-Valent Vaccine IM ONE (12:49)
[2017-05-06] MEDS: Albuterol-Ipratrop 3 mg / 0.5 (3 ml) UD IH SCH ×2 (16:10→20:29)
[2017-05-06] MEDS: Potassium Chloride 20 mEq ER Tab PO SCH (18:21)
--- NOTE | 2017-05-06 22:37 | CARD ---
APPROVED REPORT EKG Measurement Heart [id number] <Conclusion> Sinus rhythm with 1st degree AV block with premature supraventricular complexes LBBB Abnormal ECG
--- NOTE | 2017-05-07 00:38 | CON ---
DATE: 05/06/2017 LOCATION: Patient in room 372, bed 2. REASON FOR CONSULTATION: Congestive heart failure, coronary artery bypass surgery, history of AVR. HISTORY OF PRESENT ILLNESS: Patient is an 87-year-old female with known case of coronary artery disease, status post coronary artery bypass surgery, status post AVR for aortic stenosis 5 years ago at [facility]. Admitted with shortness of breath of 1 day duration. Denies any chest pain or palpitation. Shortness of breath was present at rest. Patient received Lasix in the Emergency Room. She is feeling better now. PAST MEDICAL HISTORY: Positive for hypertension, hyperlipidemia, coronary artery disease with coronary artery bypass surgery and aortic valve replacement 5 years ago at [facility]. PERSONAL HISTORY: Denies smoking, denies drinking. ALLERGIES: DENIES ANY ALLERGIES. HOME MEDICATIONS: Included simvastatin 10 mg daily, Cozaar 50 mg daily, aspirin 81 mg daily, omeprazole/sodium bicarbonate one daily. She uses Voltaren cream for arthritis. RECENT CARDIAC WORKUP: Patient follows with a reel winder in [place]. Patient had echocardiogram on 07/05/2016 at [facility]. It shows LV size was normal, LVH was present, and LV systolic function was reduced with ejection fraction of 35%, bioprosthetic aortic valve in place. Patient had a stress test also at [facility] on 07/07/2016, which was negative and showed LV ejection fraction of 54%. REVIEW OF SYSTEMS: All the systems are reviewed. Positive mentioned in the history, otherwise negative. PHYSICAL EXAMINATION: VITAL SIGNS: Blood pressure is 102/43, respirations 22, pulse 76, temperature 98.2. HEENT: Head is normocephalic. Eyes, pupils normal. Conjunctivae slightly pale. NECK: JVP elevated. LUNGS: Bilateral basilar rales. CARDIOVASCULAR: S1 and S2, prosthetic valve sound with systolic murmur. No rub. ABDOMEN: Soft, nontender. No organomegaly. EXTREMITIES: Trace edema in bilateral legs. LABORATORY DATA: WBC 5.9, hemoglobin 10.3, hematocrit 32.5, platelets 243. Sodium 143, potassium 3.9, BUN 19, creatinine 0.9, random glucose 118. AST 38, ALT 41. [id number] natriuretic peptide 3050, troponin 0.03. Total protein and albumin normal. PT, PTT normal. Chest x-ray consistent with CHF. EKG showed regular sinus rhythm, prolonged DC, left bundle-branch block, PAC was seen. DIAGNOSES: Congestive heart failure, coronary artery disease, history of coronary artery bypass surgery, status post aortic valve replacement, hypertension, hyperlipidemia, anemia. PLAN: Patient is on aspirin 81 mg daily, Lasix 20 mg IV daily, we will give another 20 mg IV stat Lasix and then from tomorrow patient will get 40 mg IV daily. We will also add potassium 20 mEq p.o. today and daily. Patient on Lovenox 40 mg subcutaneous daily. Patient was taking at home Cozaar 50 mg daily, we will add that to therapy. We will also start Coreg 3.125 mg b.i.d. We will monitor intake and output and we will follow with you. Val Garay MD
[2017-05-07] MEDS: Albuterol-Ipratrop 3 mg / 0.5 (3 ml) UD IH SCH ×6 (00:45→20:00)
[2017-05-07] MEDS: Enoxaparin 40 mg Syringe SC SCH (09:49)
[2017-05-07] MEDS: Potassium Chloride 20 mEq ER Tab PO SCH (09:50)
[2017-05-07] MEDS ORDERED: Enoxaparin 40 mg Syringe SC SCH (10:00)
[2017-05-08] MEDS: Albuterol-Ipratrop 3 mg / 0.5 (3 ml) UD IH SCH ×6 (00:04→20:18)
[2017-05-08] MEDS ORDERED: Pantoprazole 40 mg EC Tab PO ONE (03:47)
--- NOTE | 2017-05-08 05:38 | CP.PCM.PN ---
Subjective - Date & Time of Evaluation Date of Evaluation: 05/08/17 Time of Evaluation: 05:38 - Subjective Subjective: S: Patient was ordered to have protonix. She complained of epigastric pain. Came to see patient. Epigastric pain is relieved and patient is sleeping. Pertinent medical record was reviewed. O: Last Vital Signs 3 Temp 97.8 F 05/08/17 05:54 Pulse 70 05/08/17 05:54 Resp 22 05/08/17 05:54 BP 112/62 05/08/17 05:54 Pulse Ox 97 05/08/17 05:54 Stable. Not in distress. LUNGS: Normal breathing pattern. A:Epigastric pain. P: Protonix 40 mg PO x 1. Objective - Vital Signs/Intake and Output Vital Signs (last 24 hours): Temp Pulse Resp BP Pulse Ox 98.0 F 67 20 101/51 L 97 05/07/17 23:32 05/08/17 02:00 05/07/17 23:32 05/07/17 23:32 05/07/17 23:32 - Medications Medications: Current Medications Albuterol/Ipratropium (Duoneb 3 Mg/0.5 Mg (3 Ml) Ud) 3 ml IH [id number] [facility] Last Admin: 05/08/17 04:55 Dose: Not Given Aspirin (Aspirin Chewable) 81 mg PO DAILY [facility] Last Admin: 05/07/17 09:48 Dose: 81 mg Carvedilol (Coreg) 12.5 mg PO BID [facility] Enoxaparin Sodium (Lovenox) 40 mg SC DAILY [facility] PRN Reason: Protocol Last Admin: 05/07/17 09:49 Dose: 40 mg Furosemide (Lasix) 40 mg IV DAILY [facility] Last Admin: 05/07/17 09:52 Dose: 40 mg Losartan Potassium (Cozaar) 50 mg PO DAILY [facility] Last Admin: 05/07/17 09:51 Dose: 50 mg Potassium Chloride (K-Dur 20 Meq Er Tab) 20 meq PO BRK [facility] Last Admin: 05/07/17 09:50 Dose: 20 meq - Labs Labs: PT 12.3 SECONDS (9.4-12.5) 05/06/17 05:20 INR 1.07 (0.93-1.08) 05/06/17 05:20 APTT 30.5 Seconds (25.1-36.5) 05/06/17 05:20
[2017-05-08 07:49] LABS: CALCIUM 9.9 mg/dL (8.4-10.5); MAGNESIUM 1.7 mg/dL (1.7-2.2)
--- NOTE | 2017-05-08 08:54 | RAD ---
HISTORY: COMPARISON: 05/06/2017. TECHNIQUE: Chest PA and lateral FINDINGS: LINES AND TUBES: None. LUNG AND PLEURA: The lungs are well inflated. There is a moderate pulmonary venous congestion. HEART AND MEDIASTINUM: The heart is not enlarged. Status post CABG. The hilar and mediastinal contours are within normal limits. SKELETAL STRUCTURES: The bony structures are within normal limits for the patient's age. VISUALIZED UPPER ABDOMEN: Normal. OTHER FINDINGS: None. IMPRESSION: No active pulmonary disease. Moderate pulmonary venous congestion.
[2017-05-08] MEDS: Enoxaparin 40 mg Syringe SC SCH (09:49)
[2017-05-08] MEDS: Potassium Chloride 20 mEq ER Tab PO SCH (09:51)
[2017-05-08] MEDS ORDERED: Iohexol 240 (50 ml) ONE (11:13)
--- NOTE | 2017-05-08 12:28 | US ---
HISTORY: Abdominal pain COMPARISON: None. TECHNIQUE: Grayscale imaging was performed. FINDINGS: LIVER: Measures 14.1 cm in length. There is diffuse increased echogenicity of the liver parenchyma. No mass. No intrahepatic bile duct dilatation. GALLBLADDER: There are no gallstones, wall thickening or pericholecystic fluid. The sonographic Mccarthy's sign is negative. COMMON BILE DUCT: Measures 6.3 mm. No stones. No dilatation. PANCREAS: Unremarkable as visualized. No mass. No ductal dilatation. RIGHT KIDNEY: Measures 9.5 cm in length. Normal echogenicity. No calculus, mass, or hydronephrosis. AORTA: No aneurysmal dilatation. IVC: Unremarkable. OTHER FINDINGS: None . IMPRESSION: Fatty liver. No cholelithiasis or biliary dilatation.
--- NOTE | 2017-05-08 17:41 | CT ---
PROCEDURE: CT Abdomen and Pelvis with contrast HISTORY: Abdominal pain COMPARISON: Ultrasound right upper quadrant from 05/08/2017 TECHNIQUE: CT scan of the abdomen and pelvis was performed without administration of intravenous contrast. Oral contrast was administered. Coronal and sagittal reformatted images were obtained. Radiation dose: Total exam DLP = 390.50 mGy-cm. This CT exam was performed using one or more of the following dose reduction techniques: Automated exposure control, adjustment of the mA and/or kV according to patient size, and/or use of iterative reconstruction technique. FINDINGS: LOWER THORAX: There is subsegmental atelectasis in the right lower lobe. The left lung base is clear. There is a tiny calcified granuloma in the lingula. LIVER: Normal in size. No intrahepatic biliary ductal dilatation. GALLBLADDER AND BILE DUCTS: There are no calcified gallstones. PANCREAS: Normal in size without calcifications or ductal dilatation. SPLEEN: Normal in size. ADRENALS: No discrete nodule. KIDNEYS AND URETERS: Both kidneys are normal in size without hydronephrosis or nephrolithiasis. There is a 3.5 cm parapelvic cyst in the left lower pole. VASCULATURE: No aortic aneurysm. There are advanced atherosclerotic aortoiliac calcifications. BOWEL: The small bowel loops are normal in caliber. The colon is unremarkable. No bowel dilatation or obstruction. APPENDIX: Normal appendix. PERITONEUM: No free fluid. No free air. LYMPH NODES: No enlarged lymph nodes. BLADDER: Unremarkable. REPRODUCTIVE: The uterus is mildly bulky with calcified fibroids with BONES: No acute fracture. Within normal limits for the patient's age with OTHER FINDINGS: There is a small sliding hiatal hernia. IMPRESSION: No acute abdominal or pelvic abnormality.
[2017-05-08] MEDS ORDERED: Alum-Mag Hydrox-Simethicone Susp (30 mL) PO ONE (17:57)
[2017-05-08 18:06] LABS: PH,URINE 5.5 (4.7-8.0); URINE BILIRUBIN NEGATIVE (NEGATIVE); URINE BLOOD NEGATIVE (NEGATIVE); URINE GLUCOSE (UA) NEGATIVE (NEGATIVE); URINE LEUKOCYTE ESTERASE TRACE Leu/uL (NEGATIVE); URINE NITRATE NEGATIVE (NEGATIVE); URINE PROTEIN NEGATIVE mg/dL (<30 mg/dL); URINE UROBILINOGEN 0.2 E.U./dL (<1 E.U./dL)
[2017-05-08 18:07] LABS: URINE APPEARANCE CLEAR (CLEAR); URINE COLOR YELLOW (YELLOW)
[2017-05-08 19:21] LABS: URINE RBC 0 - 2 /hpf (0-2); URINE WBC NEGATIVE /hpf (0-6)
[2017-05-08 19:22] LABS: URINE BACTERIA MANY (NEG)
--- NOTE | 2017-05-09 00:50 | PN ---
DATE: 05/08/2017 SUBJECTIVE: Patient complained of epigastric discomfort and she feels better. She is less short of breath. No cough. PHYSICAL EXAMINATION: VITAL SIGNS: Today, temperature 97.8, heart rate 75, blood pressure 112/73, respirations 18, saturation 95%. HEAD AND NECK: Normal. No JVD. No thyromegaly. CHEST: Clear. CARDIAC: First sound and second sound normal. Systolic murmur. ABDOMEN: Soft. There is tenderness in epigastric area. EXTREMITIES: No edema. NEUROLOGIC: Normal. IMPRESSION AND PLAN: 1. Dyspnea secondary to congestive heart failure, high brain natriuretic peptide. 2. Possible left upper lobe pneumonia. We will get a CT chest. We will give her intravenous antibiotics, Rocephin and doxycycline, and we will monitor her condition. We will get Pulmonary and Infectious Disease consult to evaluate. We will get a CT chest in the morning. Observe the patient, does not seem to be having any fever, and white count is normal. We will get CT chest to evaluate. 3. Abdominal pain. Get ultrasound of the abdomen. Results came back negative for gallbladder. CT abdomen and pelvis was also unremarkable. 4. History of intermittent dysuria. We will get a repeat urinalysis at this time. Continue current therapy. Follow up clinically. CT chest in the morning. I will get an echocardiography in the morning. Leonard Morley MD
[2017-05-09] MEDS: Albuterol-Ipratrop 3 mg / 0.5 (3 ml) UD IH SCH ×5 (01:11→15:56)
--- NOTE | 2017-05-09 01:23 | PN ---
DATE: 05/07/2017 SUBJECTIVE: Patient is an 87-year-old female, who came in with shortness of breath. She seems better with Lasix IV. She denies any fever, any cough, any nausea, or any vomiting. PHYSICAL EXAMINATION: VITAL SIGNS: Temperature 98, heart rate 75, blood pressure is 101/51, respiration 20, saturation 98% HEAD AND NECK: Normal. NECK: No JVD. No thyromegaly. CHEST: Clear, good air entry. CARDIAC: First sound and second sound normal. There is systolic murmur. ABDOMEN: Soft, mild epigastric tenderness. EXTREMITIES: No edema. NEUROLOGIC: Normal. IMPRESSION AND PLAN: 1. Acute congestive heart failure secondary to valvular heart disease, ischemia. We will follow up with Cardiology consult. Continue IV Lasix. 2. Possible pneumonia. We will consider getting CT chest. 3. Hypertension, stable. 4. Abdominal pain, epigastric. We will start the patient on Protonix and Pepcid. 5. Hypercholesterolemia. 6. Chronic arthritis. 7. Continue gastric and deep vein thrombosis prophylaxis. 8. Continue current medications. Leonard Morley MD
[2017-05-09 05:43] VITALS: O2SAT 95
[2017-05-09 07:26] LABS: CALCIUM 9.8 mg/dL (8.4-10.5)
--- NOTE | 2017-05-09 08:42 | CT ---
PROCEDURE: CT Chest without contrast HISTORY: pnemonia vs mass COMPARISON: None. TECHNIQUE: Contiguous axial images were obtained through the chest without intravenous contrast enhancement. Sagittal and coronal reconstructions were performed. Radiation dose (DLP): 319.13 mGy-cm. This CT exam was performed using one or more of the following dose reduction techniques: Automated exposure control, adjustment of the mA and/or kV according to patient size, and/or use of iterative reconstruction technique. FINDINGS: LUNGS: Focal airspace opacity noted at the right lung base may represent atelectasis or scar tissue. The possibility of pneumonia or neoplasm is less likely. Otherwise no evidence of infiltrate or consolidation in the lungs. There are few scattered small nodule in the lungs. The largest nodule seen at the left lower lobe image 55 measures 6.8 millimeter. MEDIASTINUM: Unremarkable thoracic aorta. No aneurysm. The heart is mildly enlarged. The patient is likely status post aortic valve repair. Main pulmonary artery unremarkable. No vascular congestion. No lymphadenopathy. PLEURA: No pleural fluid. No pneumothorax. BONES: No fracture. No destructive lesion. Status post sternotomy UPPER ABDOMEN: No evidence of acute pathology or suspicious mass in the visualized portion of the upper abdomen. OTHER FINDINGS: None. IMPRESSION: No evidence of pneumonia or suspicious mass in the lungs. Linear shaped focal opacity at the right lung base may represent atelectasis or scar tissue. Few small scattered lung nodules with the largest nodule seen at the left lower lobe measures 0.68 centimeter. Six months follow-up reassessment may be obtained. Mild cardiomegaly.
--- NOTE | 2017-05-09 08:51 | HP ---
DATE OF EXAM: 05/06/2017 REASON FOR ADMISSION: This is an 87-year-old female with complaint of shortness of breath. HISTORY OF PRESENT ILLNESS: The patient is an 87-year-old female who has a history of aortic valve replacement more than five years ago, also history of coronary artery disease, bypass surgery, hypertension, came into the ER because of shortness of breath. She denies any chest pain. She denies any leg swelling, nausea, vomiting, diarrhea or fever. PAST MEDICAL HISTORY: As above. She does have also acid reflux and gastritis, chronic. She does have also hypertension, hypercholesterolemia, chronic back pain, chronic osteoarthritis, knee arthritis, and congestive heart failure. Patient also had a stress test two years ago, was normal. Negative for ischemia and she had a previous echo in the past, ejection fraction 50% with moderate mitral regurgitation and possible mild aortic stenosis. Patient has a new valve, a biological valve. REVIEW OF SYSTEMS: As in the present illness, she also complained of acid problem. She does have also burning urination, recurrent; chronic arthritis of her knees; shoulder pain in the past; dyspnea on and off. MEDICATIONS AT HOME: She takes simvastatin 10 mg. She takes omeprazole, Cozaar 50 mg once a day, Pepcid 40 mg, Voltaren gel topically and aspirin 81 mg. PHYSICAL EXAMINATION VITAL SIGNS: Temperature 97.9, heart rate 80, blood pressure 121/64, respirations 19, saturation 97%. HEAD AND NECK: Normal. No JVD. No thyromegaly. CHEST: Clear. Good air entry. Few basal rales. CARDIAC: First sound and second sound are normal. There is systolic ejection murmur in the aortic area. ABDOMEN: Soft, nontender. EXTREMITIES: No edema. NEUROLOGIC: Normal. LABORATORY DATA: White count 5.9, hemoglobin 10.3, hematocrit 32.5, platelets 243,000. Chemistry: Sodium 143, potassium 3.9, chloride 107, bicarbonate 23. BUN 19, creatinine 0.9. Blood glucose level 118, calcium 10.2. Liver function test is normal. ProBNP is 3050. Troponin is negative. Chest x-ray, there are infiltrates in the right upper lobe. IMPRESSION AND PLAN 1. Acute congestive heart failure. We will continue Cardiology consult the patient and continue IV Lasix, to get an echocardiogram. 2. Hypertension. 3. Hypercholesterolemia. Leonard Morley MD
[2017-05-09] MEDS: Enoxaparin 40 mg Syringe SC SCH (09:55)
[2017-05-09] MEDS ORDERED: cefTRIAXone 1 gm 1 GM/100 ML BAG IVPB SCH (10:00)
[2017-05-09] MEDS: Potassium Chloride 20 mEq ER Tab PO SCH (10:00)
[2017-05-09 12:09] VITALS: BP 101/64; RESP 22; TEMP 98
--- NOTE | 2017-05-09 12:28 | CP.PCM.CON ---
History of Present Illness - History of Present Illness History of Present Illness: 87 year old female with PMH of CAD S/P CABG, HTN, aortic stenosis, left eye cataract S/P surgery was brought in to [facility] because of a 1 day history of shortness of breath and dyspnea on exertion. She has minimal cough which is dry. She denies fever or chills, no nausea or vomiting, no chest pain, no headache, no abdominal pain, no diarrhea, no dysuria. CXR done showed some infiltrates and lower lobe atelectasis but CT chest was done which only showed some small pulmonary nodules without infiltrates. Infectious Diseases consult is requested to further evaluate and manage. Review of Systems - Review of Systems All systems: reviewed and no additional remarkable complaints except (as per HPI ) Past Patient History - Tetanus Immunizations Tetanus Immunization: Unknown - Past Social History Smoking Status: Never Smoked - CARDIAC Hx Cardiac Disorders: Yes (cabg 2 vessels) Hx Hypercholesterolemia: Yes Hx Hypertension: Yes Hx Pacemaker: No Other/Comment: cad, aortic valve replacement, mitral regurgitation, tricuspid regurgitation - PULMONARY Hx Respiratory Disorders: No - NEUROLOGICAL Hx Neurological Disorder: No - HEENT Hx HEENT Problems: No Hx Blind: No Hx Cataracts: Yes (left eye sx) - RENAL Hx Chronic Kidney Disease: No - ENDOCRINE/METABOLIC Hx Endocrine Disorders: No - HEMATOLOGICAL/ONCOLOGICAL Hx Blood Disorders: Yes (hx sepsis) - INTEGUMENTARY Hx Dermatological Problems: No - MUSCULOSKELETAL/RHEUMATOLOGICAL Hx Falls: No - GASTROINTESTINAL Hx Gastrointestinal Disorders: Yes Hx Gastroesophageal Reflux: Yes Other/Comment: esophagitis, gastritis,12/21/23 sphicterotomy and dilation, hx anal fissures, rectal bleeding anal stenosis, 2 hemorrhoid surgeries - GENITOURINARY/GYNECOLOGICAL Hx Incontinence: Yes (uses pads) Hx Urinary Tract Infection: Yes (recurrant) - PSYCHIATRIC Hx Substance Use: No - SURGICAL HISTORY Hx Open Heart Surgery: Yes (2011) Other/Comment: open heart 2004 - ANESTHESIA Hx Anesthesia Reactions: No Hx Malignant Hyperthermia: No Meds Allergies/Adverse Reactions: Allergies Allergy/AdvReac Type Severity Reaction Status Date / Time No Known Allergies Allergy Verified 05/06/17 05:23 - Medications Medications: Current Medications Albuterol/Ipratropium (Duoneb 3 Mg/0.5 Mg (3 Ml) Ud) 3 ml IH [id number] [facility] Last Admin: 02/25/18 20:18 Dose: Not Given Aspirin (Aspirin Chewable) 81 mg PO DAILY [facility] Last Admin: 05/08/17 09:50 Dose: 81 mg Carvedilol (Coreg) 12.5 mg PO BID [facility] Last Admin: 05/08/17 17:14 Dose: 12.5 mg Enoxaparin Sodium (Lovenox) 40 mg SC DAILY [facility] PRN Reason: Protocol Last Admin: 05/08/17 09:49 Dose: 40 mg Famotidine (Pepcid) 40 mg PO HS [facility] Last Admin: 05/08/17 21:37 Dose: 40 mg Furosemide (Lasix) 40 mg IV DAILY [facility] Last Admin: 05/08/17 09:48 Dose: 40 mg Ceftriaxone Sodium (Rocephin 1 Gram Ivpb) 1 gm in 100 mls @ 100 mls/hr IVPB DAILY [facility] PRN Reason: Protocol Doxycycline Hyclate 100 mg/ (Sodium Chloride) 100 mls @ 100 mls/hr IVPB Q12 [facility] PRN Reason: Protocol Last Admin: 05/08/17 21:36 Dose: 100 mls/hr Losartan Potassium (Cozaar) 50 mg PO DAILY [facility] Last Admin: 05/08/17 09:50 Dose: 50 mg Pantoprazole Sodium (Protonix Inj) 40 mg IVP DAILY [facility] Last Admin: 05/08/17 18:08 Dose: 40 mg Potassium Chloride (K-Dur 20 Meq Er Tab) 20 meq PO BRK [facility] Last Admin: 05/08/17 09:51 Dose: 20 meq Physical Exam - Constitutional Appears: Non-toxic, Chronically Ill - Head Exam Head Exam: NORMAL INSPECTION - ENT Exam ENT Exam: Mucous Membranes Moist - Neck Exam Neck exam: Negative for: Meningismus - Respiratory Exam Respiratory Exam: Decreased Breath Sounds - Cardiovascular Exam Cardiovascular Exam: +S1, +S2 - GI/Abdominal Exam GI & Abdominal Exam: Soft. absent: Tenderness Results - Vital Signs Recent Vital Signs: Last Vital Signs Temp 98.7 F 05/08/17 18:00 Pulse 75 05/08/17 18:00 Resp 18 05/08/17 18:00 BP 112/73 05/08/17 18:00 Pulse Ox 95 05/08/17 18:00 - Labs Result Diagrams: 05/06/17 05:20 05/09/17 06:30 Labs: Laboratory Results - last 24 hr 05/08/17 05/08/17 07:00 17:54 Sodium 138 Potassium 4.2 Chloride 100 Carbon Dioxide 27 Anion Gap 16 BUN 30 H Creatinine 1.1 Est GFR ( Amer) 57 Est GFR (Non-Af Amer) 47 Random Glucose 103 Calcium 9.9 Magnesium 1.7 Urine Color Yellow Urine Appearance Clear Urine pH 5.5 Ur Specific [place] 1.010 Urine Protein Negative Urine Glucose (UA) Negative Urine Ketones Negative Urine Blood Negative Urine Nitrate Negative Urine Bilirubin Negative Urine Urobilinogen 0.2 Ur Leukocyte Esterase Trace H Urine RBC 0 - 2 Urine WBC Negative Ur Epithelial Cells 6 - 8 Urine Bacteria Many Assessment & Plan - Assessment and Plan (Free Text) Plan: Assessment Shortness of breath probably from COPD exacerbation R/O pneumonia CAD S/P CABG HTN aortic stenosis left eye cataract S/P surgery Plan reviewed CT chest - only showed pulmonary nodules, which should be followed up with repeat CT chest in 6 months patient has been started on Rocephin and Doxycycline - if PCT is negative, will d/c antibiotics will monitor clinically
--- NOTE | 2017-05-09 12:46 | RAD ---
PROCEDURE: Bilateral Knee Radiographs. HISTORY: pain COMPARISON: None. FINDINGS: BONES: Right Knee: Normal. No fracture. Left Knee: Normal. No fracture. JOINTS: Right Knee: Meniscal calcifications are seen consistent with chondrocalcinosis Left knee: As above SOFT TISSUES: Right Knee: Normal. Left Knee: Normal. JOINT EFFUSION: Right Knee: None. Left Knee: None. OTHER FINDINGS: None. IMPRESSION: Meniscal calcifications are seen consistent with chondrocalcinosis
--- NOTE | 2017-05-09 13:32 | CARD ---
APPROVED REPORT EXAM: Two-dimensional and M-mode echocardiogram with Doppler and color Doppler. INDICATION Congenital Heart Disease 2D DIMENSIONS Left Atrium (2D)4.6 (1.6-4.0cm)IVSd1.1 (0.7-1.1cm) LVDd4.7 (3.9-5.9cm)PWd1.0 (0.7-1.1cm) LVDs4.1 (2.5-4.0cm)FS (%) 13.8 % LVEF (%)29.2 (>50%) M-Mode DIMENSIONS Aortic Root3.10 (2.2-3.7cm) Aortic Valve AoV Peak Wkckccqd275.0cm/sAoV VTI73.2cmAO Peak GR.40mmHg LVOT Peak Fgzcrbka82.1cm/sLVOT VTI17.20cmAO Mean GR.22mmHg Mitral Valve MV E Atsdvvbq144.0cm/sMV A Wfntnnzi98.7cm/sE/A ratio1.1 TDI Lateral E' Peak V7.12cm/sMedial E' Peak V4.00cm/sE/Lateral E'15.6 E/Medial E'27.8 Pulmonary Valve PV Peak Edqijrvp41.6cm/sPV Peak Grad.2mmHg Tricuspid Valve TR Peak Xgkiukcs240ed/sRAP KHUYFUBU71rmThUV Peak Gr.35mmHg [id number] LEFT VENTRICLE The Left Ventricle is mildly dilated. There is normal left ventricular wall thickness. The systolic function is mildly to moderately impaired.EF-30-35% There is mild to moderate hypokinesis in the apical anterior wall. Transmitral Doppler flow pattern is Grade II-pseudonormal filling dynamics. No left ventricle thrombus noted on this study. There is no ventricular septal defect visualized. There is no left ventricular aneurysm. There is no mass noted in the left ventricle. RIGHT VENTRICLE The right ventricle is normal size. There is normal right ventricular wall thickness. The right ventricular systolic function is normal. ATRIA The left atrium is mildly dilated. The right atrium size is normal. The interatrial septum is intact with no evidence for an atrial septal defect. AORTIC VALVE There is trace aortic regurgitation. There are no vegetations on this prosthetic aortic valve. There is a bioprosthetic aortic valve prosthesis., Functioning Normal. MITRAL VALVE The mitral valve is thickened but opens well. Mitral regurgitation is moderate. There is no mitral valve stenosis. There is no evidence of mitral valve prolapse. TRICUSPID VALVE The tricuspid valve leaflets are thickened , but open well. There is moderate tricuspid regurgitation.RVSP-45 mmof Hg. There is no tricuspid valve stenosis. There is no tricuspid valve prolapse or vegetation. PULMONIC VALVE The pulmonic valve is borderline thickened. There is trace pulmonic valvular regurgitation. There is no pulmonic valvular stenosis. GREAT VESSELS The aortic root is normal in size. The ascending aorta is normal in size. The pulmonary artery is normal. The IVC is normal in size and collapses >50% with inspiration. PERICARDIAL EFFUSION There is no pleural effusion. There is no pericardial effusion. <Conclusion> The Left Ventricle is mildly dilated. There is normal left ventricular wall thickness. The systolic function is mildly to moderately impaired.EF-30-35% There is trace aortic regurgitation. There are no vegetations on this prosthetic aortic valve. There is a bioprosthetic aortic valve prosthesis., Functioning Normal. Mitral regurgitation is moderate. There is moderate tricuspid regurgitation.RVSP-45 mmof Hg.
--- NOTE | 2017-05-09 13:57 | PN ---
DATE: REASON FOR CONSULTATION AND FOLLOWUP: Congestive heart failure, coronary artery disease, CABG, history of coronary artery bypass, history of AVR. The patient denies any chest pain, denies any shortness of breath with complaint of pain in right knee. OBJECTIVE: GENERAL: The patient is lying flat in bed, not in apparent distress. VITAL SIGNS: Temperature afebrile, heart rate 73, blood pressure 108/58. HEENT: PERRLA. Extraocular muscles intact. NECK: Supple. No carotid bruit or thyromegaly. CHEST: Clear to auscultation. HEART: S1 and S2, regular. ABDOMEN: Soft. EXTREMITIES: Clubbing and cyanosis negative. LABORATORY DATA: Blood workup as follows: WBC 5.8, hemoglobin 10.3, hematocrit 32.5, platelet count 243. Chemistry shows sodium 137, potassium 4.4, chloride 98, carbon dioxide 23, anion gap of 16. BUN 43, creatinine 1.3. IMPRESSION: An 87-year-old female with known history of coronary artery disease, status post coronary artery bypass, status post AVR for aortic stenosis at [facility] 5 years ago, admitted with mild shortness of breath, complaining of right knee pain. Her last echo 07/05/2013, showed an ejection fraction of 35%,bioprosthetic aortic valve in place. The patient had a stress test on 07/07/2016, was negative, ejection fraction 54%. Admitted with shortness of breath, elevated BNP, hypertension, hyperlipidemia, history of anemia, history of coronary artery disease as above, renal insufficiency, creatinine clearance 40 mL, stage 3 chronic kidney disease.. RECOMMENDATIONS: Continue DVT prophylaxis, continue Coreg, continue losartan. Clinically, the patient is not in failure. Continue antibiotic. We will get echo to assess LV function. Avoid nephrotoxic medication. We will follow with you. Further recommendation after the echo. We will follow with you. We will get lipid profile, TSH, and hemoglobin A1c as well. We will do echo today to assess LV function and bioprosthetic aortic valve function. Further recommendation will be made as per hospital course and clinical improvement of the patient. Thank you Dr. Morley for providing us the opportunity in taking care of the patient, Ondina Bonner. Val Whipple MD
[2017-05-09] MEDS ORDERED: MethylPREDNISolone Depo 40 mg/ml Inj IM ONE (14:19)
[2017-05-09] MEDS ORDERED: Bupivacaine 0.5% Inj(30mL) IJ ONE (14:19)
[2017-05-09 16:36] VITALS: PULSE 67
--- NOTE | 2017-05-10 02:06 | CON ---
DATE: ORTHOPEDIC CONSULT REPORT HISTORY OF PRESENT ILLNESS: The patient is an 87-year-old female, in room 372, bed 2, with complaint of pain in the right greater than left knee. X-ray shows chondrocalcinosis of the right knee and appears to be from calcium pyrophosphate disease or pseudogout, and with a combination of pain in the knee, minimal effusion, we injected the right knee with Depo-Medrol and Marcaine for symptomatic relief. I told her if she needs an injection to the left knee, she can come to the office and to do home exercise, ambulate with a cane and to be followed by a medical doctor. FINAL DIAGNOSES: Calcium pyrophosphate disease or pseudogout, right greater than left knee. Nav Scott DO [facility]
[2017-05-10] MEDS ORDERED: Pantoprazole 40 mg EC Tab PO SCH (07:30)
[2017-05-10] MEDS ORDERED: Potassium Chloride 10 mEq ER Tab PO SCH (08:00)
--- NOTE | 2017-05-11 08:05 | DS ---
HOSPITAL COURSE: An 87-year-old female came in with dyspnea, found to have acute congestive heart failure, high BNP. Patient was seen by Cardiology, Dr. Garay. Patient was given IV Lasix, seems to be improving. Chest x-ray initially showed infiltrates, possible pneumonia. Patient was given a shot of Rocephin IV and doxycycline. Repeat CT chest next day showed no active disease and antibiotic was canceled. Patient is, otherwise, stable. She complained of right knee pain. Dr. Scott had seen the patient and intra-articular joint ____ was evaluated for that reason for joint injection and seems stable. She was seen by [employer] digital media sales consultant, Dr. Sahni, and also, Dr. Scott; seen by Cardiology, Dr. Whipple and patient was stable. She had a CT abdomen and pelvis, which was negative; ultrasound of gallbladder, which was negative; echocardiogram, which showed decreased LV function, [id number] mitral regurgitation, bioprosthetic aortic valve function was normal; expected increased velocity across the valve, but otherwise normal. Etiology of her low ejection fraction is unclear. Patient had a bypass surgery with aortic valve replacement more than 5 to 7 years ago. However, clinically, she is stable. Her kidney functions due to Lasix went up , we are holding Lasix, we are holding potassium, we will re-evaluate the patient, at this time patient is stable. She wants to go home. We will discharge the patient home and is to be followed as outpatient. PHYSICAL EXAMINATION VITAL SIGNS: On discharge, temperature 98, heart rate 78, blood pressure 101/64, respirations 22, saturation 97. HEAD AND NECK: Normal. No JVD. No thyromegaly. CHEST: Clear. Good air entry. CARDIAC: First sound and second sound normal. There is systolic ejection murmur. ABDOMEN: Soft, nontender. EXTREMITIES: No edema. NEUROLOGIC: Normal. LABORATORY DATA: Studies show sodium 137, potassium 4.4, chloride 98, bicarbonate 27, BUN 43, creatinine 1.3. DISCHARGE DIAGNOSES 1. Acute congestive heart failure, systolic heart failure combined with diastolic heart failure, acute on top of chronic. 2. Acute renal insufficiency, probably pre-renal due to diabetics. 3. Chronic obstructive pulmonary disease, mild. 4. Chronic osteoarthritis. 5. Chronic intermittent abdominal pain due to acid reflux with mild tenderness in epigastric area. 6. Coronary heart disease. 7. Hypertension. PLAN: Discharge the patient home. Follow up in the office within a week. DISCHARGE MEDICATIONS: Simvastatin 10 mg; omeprazole; Pepcid 40 mg p.o. daily; Cozaar 50 mg p.o. daily, we will hold off for today, on discharge and resume next day; Voltaren gel topically to arthritis area; aspirin 81 mg; potassium 10 mEq; Lasix 40 mg p.o., we will hold off on Lasix and potassium for one day and we will evaluate again; continue Coreg 12.5 mg b.i.d. Follow up in the office. Leonard Morley MD
== END 2017-05-09 17:29 | disposition home or self-care (01) | DRG 291 ==
LOC: ED 05:13 → ERH 06:22 → 3RSO 09:35
PROVIDERS: ADMIT Internal Medicine; ATTEND Internal Medicine
DX: I13.0 Hypertensive heart and chronic kidney disease with heart failure and stage 1 through stage 4 chronic kidney disease, or unspecified chronic kidney disease (principal); I50.41 Acute combined systolic (congestive) and diastolic (congestive) heart failure; D64.9 Anemia, unspecified; I08.1 Rheumatic disorders of both mitral and tricuspid valves; J44.9 Chronic obstructive pulmonary disease, unspecified; N18.3 Chronic kidney disease, stage 3 (moderate); I25.10 Atherosclerotic heart disease of native coronary artery without angina pectoris; E78.00 Pure hypercholesterolemia, unspecified; K21.9 Gastro-esophageal reflux disease without esophagitis; G89.29 Other chronic pain; M11.261 Other chondrocalcinosis, right knee; M17.10 Unilateral primary osteoarthritis, unspecified knee; T50.1X5A Adverse effect of loop [high-ceiling] diuretics, initial encounter; Z95.2 Presence of prosthetic heart valve; Z95.1 Presence of aortocoronary bypass graft

== ENCOUNTER 2018-02-20 10:44 | Emergency (ER) | payer MEDICARE, OTHER ==
[2018-02-20 10:50] VITALS: BMI 23.4
[2018-02-20 11:51] LABS: BASO # 0.01 K/mm3 (0.0-2.0); BASO % 0.2 % (0.0-3.0); EOS % 0.6 % (1.5-5.0); GRAN # 2.81 (1.4-6.5); GRAN % 57.5 % (50.0-68.0); HEMOGLOBIN 10.3 g/dL (12.0-16.0); LYMPH # 1.5 (1.2-3.4); LYMPH % 30.7 % (22.0-35.0); MEAN CELL VOLUME 88.4 fl (80.0-105.0); MEAN CORPUSCULAR HEMOGLOBIN 28.4 pg (25.0-35.0); MEAN CORPUSCULAR HGB CONC 32.1 g/dl (31.0-37.0); MONO # 0.5 (0.1-0.6); RBC 3.63 10^6/uL (3.5-6.1); RED CELL DISTRIBUTION WIDTH 14.7 % (11.5-14.5); WHITE BLOOD COUNT 4.9 10^3/uL (4.5-11.0)
[2018-02-20 12:00] LABS: INR 1.09; PARTIAL THROMBOPLASTIN TIME 28.6 Seconds (25.1-36.5); PROTHROMBIN TIME 12.5 SECONDS (9.4-12.5)
[2018-02-20 12:01] LABS: ALB/GLOB RATIO 1.1 (1.1-1.8); ALBUMIN 4.2 g/dL (3.0-4.8); ALT/SGPT 19 U/L (7-56); AST/SGOT 26 U/L (14-36); BLOOD UREA NITROGEN 26 mg/dL (7-21); CALCIUM 9.8 mg/dL (8.4-10.5); GFR NON-AFRICAN AMERICAN 52; LIPASE 40 U/L (23-300)
[2018-02-20] MEDS ORDERED: Morphine 2 mg/ml ISec IVP STA (12:13)
--- NOTE | 2018-02-20 12:17 | ED PDOC ---
Arrival/HPI - General Chief Complaint: Trauma Time Seen by Provider: 02/20/18 11:05 Historian: Family (Pt does not speak Malian. Family present at bedside helped provide information. ) - History of Present Illness Narrative History of Present Illness (Text): 02/20/18 11:20 88 year old female, whose past medical history includes hypertension, hyperlipidemia, CAD, CABG, and aortic stenosis, who was brought into the emergency department by [facility] post falling forward yesterday on street, complaining of left-sided rib area pain, and left-sided hip pain. Family present at bedside states patient did not hit head and notes that pt was fine yesterday but not today. Patient does not speak Malian, so family at bedside helped provide information. No other complaints were reported by pt's family. PMD: Dr. Morley Time/Duration: 24 hours (pt fell yesterday ) Symptom Onset: Sudden Symptom Course: Unchanged Activities at Onset: Light Context: Other (fell while walking) Past Medical History - Provider Review Nursing Documentation Reviewed: Yes - Infectious Disease Hx of Infectious Diseases: None - Tetanus Immunization Tetanus Immunization: Unknown - Reproductive Menopause: Yes - Cardiac Hx Cardiac Disorders: Yes (cabg 2 vessels) Hx Hypertension: Yes Hx Pacemaker: No Other/Comment: cad, aortic valve replacement, mitral regurgitation, tricuspid regurgitation - Pulmonary Hx Respiratory Disorders: No - Neurological Hx Neurological Disorder: No - HEENT Hx HEENT Disorder: No Hx Blind: No Hx Cataracts: Yes (left eye sx) - Renal Hx Renal Disorder: No - Endocrine/Metabolic Hx Endocrine Disorders: No - Hematological/Oncological Hx Blood Disorders: Yes (hx sepsis) - Integumentary Hx Dermatological Disorder: No - Musculoskeletal/Rheumatological Hx Falls: No - Gastrointestinal Hx Gastrointestinal Disorders: Yes Hx Gastroesophageal Reflux: Yes Other/Comment: esophagitis, gastritis,12/21/23 sphicterotomy and dilation, hx anal fissures, rectal bleeding anal stenosis, 2 hemorrhoid surgeries - Genitourinary/Gynecological Hx Incontinence: Yes (uses pads) Hx Urinary Tract Infection: Yes (recurrant) - Psychiatric Hx Psychophysiologic Disorder: Yes (pt's son 2 yrs ago) Hx Emotional Abuse: No Hx Physical Abuse: No Hx Substance Use: No - Surgical History Hx Open Heart Surgery: Yes (2011) Other/Comment: open heart 2004 - Anesthesia Hx Anesthesia Reactions: No Hx Malignant Hyperthermia: No - Suicidal Assessment Feels Threatened In Home Enviroment: No Family/Social History - Physician Review Nursing Documentation Reviewed: Yes Family/Social History: No Known Family HX Smoking Status: Never Smoked Hx Alcohol Use: No Hx Substance Use: No Allergies/Home Meds Allergies/Adverse Reactions: Allergies No Known Allergies Allergy (Verified 05/06/17 05:23) Home Medications: Home Meds Medication Instructions Recorded Confirmed RX: Aspirin [Ecotrin] 81 mg PO DAILY 05/06/17 05/06/17 RX: Diclofenac Sodium [Voltaren] 1 % TP QID 05/06/17 05/06/17 RX: Famotidine [Pepcid] 40 mg PO DAILY 05/06/17 05/06/17 RX: Losartan [Cozaar] 50 mg PO DAILY 05/06/17 05/06/17 RX: Omeprazole/Sodium Bicarbonate 1 each PO DAILY 05/06/17 05/06/17 [Omeprazole-Bicarb 40-1,100 Cap] RX: Simvastatin 10 mg PO DAILY 05/06/17 05/06/17 Review of Systems - Physician Review All systems were reviewed & negative as marked: Yes - Review of Systems Constitutional: Normal Musculoskeletal: Other (pt notes left sided rib area pain and left sided hip pain ). absent: Normal Skin: Other (pt shows abrasions to left knee ). absent: Normal Physical Exam - Physical Exam Physical Exam Limitations: Other (Pt does not speak Malian. Family present at [facility] helped provide information. ) Vital Signs Reviewed: Yes Temperature: Afebrile Blood Pressure: Normal Pulse: Regular Respiratory Rate: Normal Appearance: Positive for: Well-Appearing, Non-Toxic Pain Distress: Mild Mental Status: Positive for: Alert and Oriented X 3 - Systems Exam Head: Present: Atraumatic, Normocephalic Pupils: Present: PERRL Extroacular Muscles: Present: EOMI Conjunctiva: Present: Normal Mouth: Present: Moist Mucous Membranes Neck: Present: Normal Range of Motion Respiratory/Chest: Present: Clear to Auscultation, Good Air Exchange. No: Respiratory Distress, Accessory Muscle Use Cardiovascular: Present: Regular Rate and Rhythm, Normal S1, S2. No: Murmurs Abdomen: No: Tenderness, Distention, Peritoneal Signs Breast/Axillary: Present: Tender to Palpation (tenderness to left costal margin) Upper Extremity: Present: Normal Inspection. No: Cyanosis, Edema Lower Extremity: Present: Tenderness (tenderness to left hip). No: Normal Inspection Neurological: Present: GCS=15, CN II-XII Intact, Speech Normal Skin: Present: Warm, Dry, Normal Color, Abrasion (3-4 abrasions to left knee) Psychiatric: Present: Alert, Oriented x 3, Normal Insight, Normal Concentration Medical Decision Making ED Course and Treatment: 02/20/18 11:20 Impression: 88 year old female who was brought into the emergency department by [facility] status post falling forward yesterday on street, complaining of left- sided rib area pain, and left-sided hip pain. Differential Diagnosis included but are not limited to: ro fracture intrabdomi nal bleeding Plan: -- CMP -- Lipase -- CBC -- PTT -- Prothrombin Time -- Tylenol 325 mg PO -- X-ray of femur -- X-Ray of LEFT hip min 4v w/pelvis -- X-Ray of left knee, 2 views (AP&LAT) -- X-Ray of left ribs and PA chest -- CT of chest/abdomen/pelvis -- Reassess and disposition Prior Visits: Notes and results from previous visits were reviewed. Patient was last seen in the emergency department on 05/06/17 for complaint of shortness of breath which began last evening. Pt was hospitalized in stable condition with diagnosis of congestive heart failure. Progress Notes: 02/20/18 17:25 labs neg. imaging neg. pt iniatlly with moderate pain. accepted for obs by pmd. later decline admission. seen ambulatory in er. advies outpt fu and reutrn precautions - Lab Interpretations Lab Results: 02/20/18 11:40 02/20/18 11:40 Lab Results 02/20/18 11:40: PT 12.5, INR 1.09, APTT 28.6 02/20/18 11:40: Sodium 138, Potassium 4.4, Chloride 105, Carbon Dioxide 25, Anion Gap 12, BUN 26 H, Creatinine 1.0, Est GFR ( Amer) > 60, Est GFR (Non-Af Amer) 52, Random Glucose 113 H, Calcium 9.8, Total Bilirubin 0.5, AST 26, ALT 19, Alkaline Phosphatase 72, Total Protein 8.2, Albumin 4.2, Globulin 4.0, Albumin/Globulin Ratio 1.1, Lipase 40 02/20/18 11:40: WBC 4.9, RBC 3.63, Hgb 10.3 L, Hct 32.1 L, MCV 88.4, MCH 28.4, MCHC 32.1, RDW 14.7 H, Plt Count 230, MPV 10.0, Gran % 57.5, Lymph % (Auto) 30.7, Cherry % (Auto) 11.0 H, Eos % (Auto) 0.6 L, Baso % (Auto) 0.2, Gran # 2.81, Lymph # (Auto) 1.5, Cherry # (Auto) 0.5, Eos # (Auto) 0.0, Baso # (Auto) 0.01 - RAD Interpretation Narrative RAD Interpretations (Text): X-ray of femur reviewed by radiologist, shows: Dictated by: Derick Hanna MD Dictated date/time: 02/20/18 15:30 Impression: No evidence of acute fracture or dislocation X-ray of hip/pelvis reviewed by radiologist, shows: Dictated by: Derick Hanna MD Dictated Date/Time: 02/20/18 15:32 Impression: No evidence of acute fracture or dislocation. X-ray of knee reviewed by radiologist, shows: Dictated by: Derick Hanna MD Dictated date/time: 02/20/18 15:34 Impression: No evidence of acute fracture X-ray of ribs reviewed by radiologist, shows: Dictated by: Hayden Donnelly MD Dictated date/time: 02/20/18 16:59 Impression: No visible fracture. Persistent interstitial lung disease. CT of chest/abdomen/pelvis reviewed by radiologist, shows: Dictated by: Derick Hanna MD Dictated date/time: 02/20/18 16:52 Impression: No evidence of acute pathology in the chest and abdomen. No evidence of acute displaced rib fractures. Radiology Orders: 02/20/18 11:30 FEMUR MIN 2 VIEWS LT [RAD] Stat HIP MIN 4V W/ PELVIS LT [RAD] Stat KNEE LEFT 2 VIEWS (AP & LAT) [RAD] Stat RIBS LEFT & PA CHEST [RAD] Stat Novelty Maker: Radiologist - Medication Orders Current Medication Orders: Discontinued Medications Acetaminophen (Tylenol 325mg Tab) 975 mg PO STAT STA Stop: 02/20/18 11:32 Last Admin: 02/20/18 11:46 Dose: 975 mg MAR Pain/Vitals Document 02/20/18 11:46 RC (Rec: 02/20/18 11:46 RC [id number]) Pain Reassessment Is This A Pain ReAssessment? Yes Sleep Is patient sleeping during reassessment? No Presence of Pain Presence of Pain Yes Pain Scale Used Protocol: PSCALES Pain Scale Used Numeric Location Left, Right or Bilateral Left Pain Location Body Site Hip Intensity 10 Scale Used Numeric - Scribe Statement The provider has reviewed the documentation as recorded by the Scribe Beulah Ortiz All medical record entries made by the Melvinibernesto were at my direction and personally dictated by me. I have reviewed the chart and agree that the record accurately reflects my personal performance of the history, physical exam, medical decision making, and the department course for this patient. I have also personally directed, reviewed, and agree with the discharge instructions and disposition. Disposition/Present on Arrival - Present on Arrival Any Indicators Present on Arrival: No History of DVT/PE: No History of Uncontrolled Diabetes: No Urinary Catheter: No History of Decub. Ulcer: No History Surgical Site Infection Following: None - Disposition Have Diagnosis and Disposition been Completed?: Yes Diagnosis: Fall, Hip pain, Abdominal pain, Rib pain Disposition: HOME/ ROUTINE Disposition Time: 12:50 Patient Problems: Current Active Problems Problem Status Onset Abdominal pain Acute Fall Acute Hip pain Acute Rib pain Acute Condition: STABLE Discharge Instructions (ExitCare): Acute Abdomen (Belly Pain), Adult (DC), Contusion (DC), Hip Pain in Older People, Chest Pain (ED) Prescriptions: RX: Naproxen 500 mg PO BID PRN #14 tablet PRN Reason: Pain, Mild (1-3) Forms: [employer] ([place])
[2018-02-20] MEDS ORDERED: Morphine 2 mg/ml ISec ONE (12:19)
[2018-02-20 12:52] VITALS: PULSE 84; RESP 16; O2SAT 95
[2018-02-20] MEDS ORDERED: Iohexol 350 MG/100 ML VIAL ONE (14:50)
--- NOTE | 2018-02-20 15:33 | RAD ---
Date of service: 02/20/2018 PROCEDURE: Left Femur Radiographs. HISTORY: trauma COMPARISON: None. TECHNIQUE: AP and Lateral Radiographs of the left femur. FINDINGS: FEMUR: No evidence of acute fracture SOFT TISSUES: Normal. OTHER FINDINGS: None. IMPRESSION: No evidence of acute fracture or dislocation.
--- NOTE | 2018-02-20 15:35 | RAD ---
PROCEDURE: Left Hip X-ray Radiographs. HISTORY: trauma COMPARISON: None. FINDINGS: BONES: No evidence of acute fracture JOINTS: Mild to moderate osteoarthritis. SOFT TISSUES: Normal. OTHER FINDINGS: None. IMPRESSION: No evidence of acute fracture or dislocation.
--- NOTE | 2018-02-20 15:38 | RAD ---
Date of service: 02/20/2018 PROCEDURE: Left Knee Radiographs. HISTORY: Pain. COMPARISON: Comparison is made with 05/09/2017 FINDINGS: BONES: No evidence of acute fracture. JOINTS: Moderate osteoarthritic changes are again noted. Chondrocalcinosis is also again noted JOINT EFFUSION: None. OTHER FINDINGS: None. IMPRESSION: No evidence of acute fracture.
--- NOTE | 2018-02-20 16:56 | CT ---
Date of service: 02/20/2018 PROCEDURE: CT Chest, Abdomen and Pelvis with intravenous contrast HISTORY: trauma, left sided rib/left upper abd pain COMPARISON: Comparison is made to the previous CT abdomen dated 05/08/[address] chest dated 05/09/2017 TECHNIQUE: IV dose administered: 96 mL of Omnipaque 350 intravenously. Axial and reformatted coronal and sagittal CT images of the chest abdomen and pelvis were obtained after IV contrast administration. Radiation dose: Total exam DLP = 537.91 mGy-cm. This CT exam was performed using one or more of the following dose reduction techniques: Automated exposure control, adjustment of the mA and/or kV according to patient size, and/or use of iterative reconstruction technique. FINDINGS: CT CHEST WITH CONTRAST: LUNGS: Mild pulmonary vascular congestion. No evidence of lung contusion. Small opacities at the lung bases likely atelectasis. MEDIASTINUM: Unremarkable. Normal caliber aorta and pulmonary arterial trunk. No aortic dissection. The heart is mildly enlarged. LYMPH NODES: Unremarkable. PLEURA: No evidence of significant pleural effusion or pneumothorax. BONES: Unremarkable. OTHER FINDINGS: None. CT ABDOMEN AND PELVIS: LIVER: Mild heterogeneous enhancement of the liver is noted. No evidence of laceration or hematoma. GALLBLADDER AND BILE DUCTS: Unremarkable. PANCREAS: Unremarkable. No gross lesion or ductal dilatation. SPLEEN: Unremarkable. ADRENALS: Unremarkable. No mass. KIDNEYS AND URETERS: Again noted is cyst in the left kidney. No significant interval change noted since the previous exam.. No hydronephrosis. No solid mass. VASCULATURE: No aortic atherosclerotic calcification or mural plaque present. Unremarkable. No aortic aneurysm. BOWEL: Unremarkable. No obstruction. No gross mural thickening. APPENDIX: No evidence of appendicitis. PERITONEUM: Unremarkable. No free fluid. No free air. LYMPH NODES: Unremarkable. No enlarged lymph nodes. BLADDER: Unremarkable. REPRODUCTIVE: Unremarkable. BONES: No acute fracture. OTHER FINDINGS: None. IMPRESSION: No evidence of acute pathology in the chest and abdomen. No evidence of acute displaced rib fractures.
--- NOTE | 2018-02-20 17:03 | RAD ---
Date of service: 02/20/2018 PROCEDURE: Radiographs of the Chest and Left Ribs. HISTORY: trauma COMPARISON: 05/07/2017 two-view chest. TECHNIQUE: Frontal radiograph of the chest and multiple oblique radiographs of the left ribs were obtained. FINDINGS: LEFT RIBS: No fracture or focal lesion visualized. LUNGS: Underlying interstitial lung disease. Similar findings identified on the prior study. PLEURA: No pneumothorax or pleural fluid. CARDIOVASCULAR: No radiographic findings to suggest acute or significant cardiovascular disease. Incidental Finding(s): Postoperative changes related to sternotomy. No pulmonary vascular congestion. Atherosclerotic calcifications identified primarily aortic arch. OTHER FINDINGS: None. IMPRESSION: No visible fracture. Persistent interstitial lung disease.
[2018-02-20 17:51] VITALS: BP 134/76; TEMP 98.2
== END 2018-02-20 17:49 | disposition home or self-care (01) ==
LOC: ED 10:44
DX: M25.552 Pain in left hip (principal); R07.9 Chest pain, unspecified; R10.9 Unspecified abdominal pain; W01.0XXA Fall on same level from slipping, tripping and stumbling without subsequent striking against object, initial encounter; Y92.410 Unspecified street and highway as the place of occurrence of the external cause; I25.10 Atherosclerotic heart disease of native coronary artery without angina pectoris; I10 Essential (primary) hypertension; E78.5 Hyperlipidemia, unspecified; Z95.1 Presence of aortocoronary bypass graft
CPT/HCPCS: 71101; 71260; 73503; 73552; 73560; 74177; 80053; 83690; 85025; 85610; 85730; 96374; 96375; 99284; J2270; J2405; Q9967